=== PATIENT | female | born 1980 | race Caucasian/White ===

== ENCOUNTER 2020-09-30 09:58 | Outpatient (REF) | payer OTHER, SELFPAY | END 2020-09-30 09:59 | disposition home or self-care (01) | LOC: HO.LAB 09:58 | PROVIDERS: PCP Internal Medicine; Visit Provider Internal Medicine | DX: Z20.828 Contact with and (suspected) exposure to other viral communicable diseases (principal) | CPT/HCPCS: 36415; C9803; U0003 ==

== ENCOUNTER → 2020-10-29 16:07 | Outpatient (BNVA) | payer OTHER, SELFPAY | PROVIDERS: PCP Internal Medicine; Visit Provider Advanced Practice Midwife ==

== ENCOUNTER 2020-12-23 08:45 | Outpatient (REF) | payer OTHER, SELFPAY ==
[2020-12-23 11:54] LABS: SARS COV2 PCR INHOUSE NEGATIVE (Negative)
== END 2020-12-23 08:46 | disposition home or self-care (01) ==
LOC: HO.LAB 08:45
PROVIDERS: Visit Provider Internal Medicine
DX: Z20.822 Contact with and (suspected) exposure to COVID-19 (principal)
CPT/HCPCS: C9803; U0003

== ENCOUNTER → 2021-02-18 15:58 | Outpatient (BNVA) | payer OTHER, SELFPAY | PROVIDERS: PCP Internal Medicine; Visit Provider Obstetrics & Gynecology ==

== ENCOUNTER → 2021-03-04 15:28 | Outpatient (BNVA) | payer OTHER, SELFPAY | PROVIDERS: PCP Internal Medicine; Visit Provider Obstetrics & Gynecology | DX: Z30.432 Encounter for removal of intrauterine contraceptive device (principal) | CPT/HCPCS: 58301 ==

== ENCOUNTER 2021-03-12 10:21 | Outpatient (REF) | payer OTHER, SELFPAY ==
[2021-03-12 15:54] LABS: CT PCR NOT DETECTED (Not Detect.); NG PCR NOT DETECTED (Not Detect.)
[2021-03-13 08:40] LABS: BV Int Neg Control Negative (Negative); BV Int Pos Control Positive (Positive)
== END 2021-03-12 10:22 | disposition home or self-care (01) ==
LOC: HO.LAB 10:21
PROVIDERS: PCP Internal Medicine; Visit Provider Advanced Practice Midwife
DX: N89.8 Other specified noninflammatory disorders of vagina (principal); Z20.2 Contact with and (suspected) exposure to infections with a predominantly sexual mode of transmission
CPT/HCPCS: 87480; 87491; 87510; 87591; 87660; 99212

== ENCOUNTER 2021-07-03 15:16 | Emergency (ER) | payer OTHER, SELFPAY ==
--- NOTE | ~2021-07-03 | MR_ITS ---
EXAMINATION: MR LUMBAR SPINE WITHOUT AND WITH CONTRAST CLINICAL INFORMATION: Back pain. IV drug abuse. Fevers. Evaluation for epidural abscess. COMPARISON: Lumbar spine MRI from 03/12/2014. TECHNIQUE: MRI of the lumbar spine was obtained using routine sequences without and following the administration of 6 mL of Gadavist intravenous contrast. FINDINGS: Normal anatomic alignment. Normal, homogeneous marrow signal throughout. The vertebral body heights are maintained. The intervertebral discs are of normal height and signal. The conus medullaris terminates at the level of T12-L1. No epidural collection. The distal spinal cord is normal in appearance. No abnormal contrast enhancement. No significant abnormalities of the paraspinal musculature. Retroflexed uterus. Limited evaluation of the intra-abdominal structures without significant abnormalities. The abdominal aorta is of normal contour and caliber. AXIAL SPINAL LEVELS: Shallow disc bulging at L4-L5. Otherwise, normal annular contours. There is mild facet joint arthropathy at L4-L5 and L5-S1. No significant facet joint effusions. There is no neural foraminal or spinal canal stenosis. MR/MR lumbar spine wo/w con IMPRESSION: Minimal multilevel degenerative spondyloarthropathy of the lumbar spine as described in detail above. Otherwise, normal MRI of the lumbar spine. No suspicious edema, enhancement, or collection.
[2021-07-03 15:20] VITALS: BP 118/73; PULSE 68; RESP 16; TEMP 36.6; O2SAT 99; BMI 22.3
--- NOTE | 2021-07-03 15:47 | ED_ITS ---
HPI - Back Pain/Injury General Chief Complaint: Back Pain/Injury Stated Complaint: lower back pain Time Seen by Provider: 07/03/21 15:47 Source: patient Mode of arrival: ambulatory Limitations: no limitations History of Present Illness HPI Narrative: 40-year-old female presents to the ED with lower back pain and malaise X2 weeks that has been progressively worsening. She states this pain started all of a sudden one day and has been worsening. She does not recall what she was doing when it started but she states she never does heavy lifting. She states movement makes it worse and rest makes it better. She vaguely states over the past two weeks she has had intermittent chills but she is unsure if she has had a fever, however she has felt warm. She states the pain is intollerable despite ibuprofen, naproxen and a lidocaine patch. 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 She denies CP, SOB, nausea, vomiting, diarrhea, changes in bowel habits, weakness, peresthesias,abdominal pain. She has never had back pain before. MD elicited complaint: back pain Pertinent past history: prior back pain Onset (ago): week(s) (2) Timing: constant Severity: severe Pain scale (0-10): 10 Similar Symptoms Previously: No Quality: sharp Location: lumbar spine Radiation: none Exacerbating factors: movement Relieving factors: immobilization Treatments prior to arrival: heat therapy, NSAIDS, acetaminophen and other ( lidocaine patch ) Work related injury: No Related Data Home Medications Medication Instructions Recorded Confirmed levonorgestrel 20 mcg/24 hours (7 INTRAUTERINE 03/04/21 yrs) 52 mg intrauterine device (Mirena) Previous Rx's Medication Instructions Recorded metronidazole 500 mg tablet 500 mg PO BID 7 Days #14 tab 03/13/21 (Flagyl) Allergies Allergy/AdvReac Type Severity Reaction Status Date / Time nafcillin Allergy Unknown Verified 06/27/14 00:00 ENVIRONMENTAL Allergy Unknown ITCHY/RUNNY Uncoded 06/12/20 17:31 NOSE/WATERY EYES Review of Systems Review of Systems: Yes all other systems are reviewed and are negative Constitutional: Constitutional: Reports no additional constitutional com plaints, Denies body ache(s), Reports chills, Denies fever(s), Denies headache(s), Reports malaise and Denies weakness Eyes: Eyes: Reports no additional eye complaints and Denies change in vision ENT: Reports system reviewed and no additional complaints, except as documented, Denies dizziness, Denies headache(s), Denies nasal congestion, Denies nasal discharge and Denies neck pain Cardiovascular: Cardiovascular: Reports no additional cardiovascular complaint s, Denies chest pain, Denies leg edema and Denies dyspnea Respiratory: Respiratory: Reports no additional respiratory complaints, Denies cough and Denies dyspnea Gastrointestinal: Gastrointestinal: Reports no additional gastrointestinal complaints, Denies abdominal pain, Denies diarrhea, Denies nausea and Denies vomiting Genitourinary: Genitourinary: Reports no additional female genitourinary complaints and Denies urinary incontinence Musculoskeletal: Musculoskeletal: Reports no additional musculoskeletal complaints, Reports back pain, Denies arthralgias, Denies joint swelling, Denies neck pain, Denies numbness and Denies tingling Integumentary/Breasts: Skin/Breast: Reports system reviewed and no additional complaints, except as docu and Denies rash Neurologic: Reports system reviewed and no additional complaints, except as documented, Denies Abnormal speech present, Denies dizziness, Denies headache(s), Denies numbness, Denies tingling and Denies weakness [facility] Past Medical History Attestation statement: The following information was validated with the patient. Source: old records reviewed and nursing notes reviewed Surgical History H/O cosmetic surgery Social History Social History Unable to assess alcohol history related to: Unable to respond Patient Tobacco Use Status: Never used Tobacco Advance Directives: No Advance Directives Information Provided: Yes Patient : No Physical Exam Vital Signs: Vital Signs: Last Vital Signs Temp 98 F 07/03/21 15:20 Pulse 68 07/03/21 15:20 Resp 16 07/03/21 15:20 BP 118/73 07/03/21 15:20 Pulse Ox 99 07/03/21 15:20 Body Mass Index 22.3 Const: General: cooperative, healthy appearing, comfortable and no acute distress Orientation/consciousness: patient oriented x3 Limitations: no l imitations HENMT: Head: Yes normal to inspection Ears: hearing grossly normal bilaterally General nose exam: Normal external nose present Face and sinus: Yes normal facial exam Mouth: Normal oral and palatal mucosa present Throat: Yes posterior oropharynx normal Eyes: General: appearance normal, both eyes and all related structures Pupils: Equal, round and reactive pupils present Neck: Neck: Yes normal visual inspection Chest: Chest palpation & inspection: normal inspection of the chest Resp: Effort & Inspection: normal respiratory effort Auscultation: clear to auscultation bilaterally Cardio: Rate: regular rate Rhythm: regular rhythm Peripheral pulses: Peripheral pulses 2+ throughout GI: Inspection: Yes normal to inspection Palpation (GI): Soft to palpation and nontender Auscultation: normal bowel sounds Back/Spine/Pelvis: Other: + pain to palpation to paraspinous muscles in lumbar/sacral region. + full but very painful range of motion. Thoracic/Lumbar Spine: thoracic and lumbar spine normal to inspection Skin: General skin exam: no rashes or lesions noted Neuro: General: patient oriented x3, no focal motor deficits and normal sensation to monofilament Cranial nerves: Yes Equal, round and reactive pupils present Cognition (Neuro): normal cognition Speech: No Abnormal speech present Gait exam (Neuro): Normal gait present Motor exam (neuro): 5/5 motor strength present throughout Extrem: General: Yes normal to inspection and Yes no pedal edema Course Course Course Narrative: 1545- This is a 40 yo female former IVDA presenting with intermittent chills, malaise and lower back pain X2 weeks. She states that the pain has progressively worsened over the past 2 weeks. Despite her taking ibuprofen, naproxen, and using lidocaine patches. She states that the pain is 10/10, it does not radiate. She denies chest pain, shortness of breath, weakness, paresthesias, tingling, numbness, urinary/bowel incontinence. Upon physical examination she has exquisite tenderness to the paraspinous muscles overlying the lumbar, and sacral region vague pain over midline region. She is afebrile, however upon auscultation her heart rate is noted to be elevated, in the 100s, with a normal rhythm. Likely secondary to pain She has 5/5 strength upper and lower extremities. Sensation is intact to upper and lower extremities. She is neurologically intact. Negative CVA tenderness Reevaluation(s) Reevaluation #1: UA negative. Leukopenia noted appears to be her baseline, likely not from infection. CRP normal. Discussed this case with Dr. Andrew who recommends this patient gets an MRI for further evaluation and to r/o epidural abscess. MRI ordered. Time: 17:25 Reevaluation #2: Sign out to Tawanna BENTON pending MRI Time: 18:50 MDM - Back Pain/Injury MDM Narrative Medical decision making narrative: Based of patients history a full work up will be done to r/o infection. Blood cultures a lactic, CBC, BMP, liver, UA, ESR,CRP, fluids and an IV have been ordered. She has also been given 30 mg of toradol IM for the pain. Due to patients history of IVDA infection will be ruled out and if there is an infection will order MRI. Not consistent with cauda equina. She has full range of motion and normal sensation, no urinary complaints or incontinence Unlikely a kidney stone due to the quality of the pain, and the patient does not have urinary symptoms Likely muscle spasms, however all other diagnosis will be excluded. Medical Records Attestation: I reviewed the patient's medical records. Lab Data Attestation: I reviewed the patient's lab results. Result diagrams: 07/03/21 16:35 07/03/21 16:35 Labs: Lab Results 07/03/21 07/03/21 07/03/21 Range/Units 16:33 16:34 16:35 WBC 4.2 L (4.8-10.8) X10*3/uL RBC 3.89 L (4.20-5.50) X10*6/uL Hgb 12.7 (12.0-16.0) g/dl Hct 34.8 L (37-47) % MCV 89.5 (80-98) fL MCH 32.6 (27.0-33.0) pg MCHC 36.5 H (31.0-35.0) g/dl RDW 11.3 (11.0-16.0) % Plt Count 266 (160-400) X10*3/uL MPV 9.1 L (9.4-12.3) fL Immature Gran % (Auto) 0.0 (0.0-0.4) % Neut % (Auto) 44.3 L (45-73) % Lymph % (Auto) 43.5 H (20-40) % Titus % (Auto) 11.3 H (2-11) % Eos % (Auto) 0.2 (0-4) % Baso % (Auto) 0.7 (0-2) % Lymph # (Auto) 1.8 (1.2-4.9) X10*3/uL Titus # (Auto) 0.5 (0.1-1.2) X10*3/uL Eos # (Auto) 0.0 (0.0-0.4) X10*3/uL Baso # (Auto) 0.0 (0.0-0.2) X10*3/uL Abs Immat Gran (auto) 0.00 (0.00-0.03) X10*3/uL Absolute Neuts (auto) 1.8 L (2.0-8.3) X10*3/uL Absolute Nucleated RBC 0.000 (0.0-0.012) X10*3/uL Nucleated RBC % (auto) 0.0 (0.0-0.2) /100WBC ESR (0-20) MM/HR Sodium (135-145) mmol/L Potassium (3.3-5.1) mmol/L Chloride (96-108) mmol/L Carbon Dioxide (22-29) mmol/L Anion Gap (12-20) BUN (9-16) mg/dL Creatinine (0.5-1.4) mg/dL Estim Creat Clear Calc Estimated GFR Random Glucose (60-115) mg/dL Lactic Acid 1.0 (0.5-2.0) mmol/L Calcium (8.4-10.2) mg/dL Total Bilirubin (0.0-1.0) mg/dL Direct Bilirubin (0.0-0.5) mg/dL AST (5-31) U/L ALT (0-31) U/L Alkaline Phosphatase (39-117) U/L C-Reactive Protein (< or = 0.50) mg/dL Total Protein (6.5-8.0) g/dL Albumin (3.5-5.0) g/dL Urine Color YELLOW Urine Appearance HAZY Urine pH 7.0 (5.0-8.0) Ur Specific Valentine <= 1.005 (1.005-1.025) Urine Protein NEG (NEG-TRACE) MG/DL Urine Glucose (UA) NEG (NEG) MG/DL Urine Ketones NEG (NEG) MG/DL Urine Blood NEG (NEG) Urine Nitrite NEG (NEG) Ur Leukocyte Esterase NEG (NEG) Urine Test (NEGATIVE) 07/03/21 07/03/21 07/03/21 Range/Units 16:35 16:35 16:41 WBC (4.8-10.8) X10*3/uL RBC (4.20-5.50) X10*6/uL Hgb (12.0-16.0) g/dl Hct (37-47) % MCV (80-98) fL MCH (27.0-33.0) pg MCHC (31.0-35.0) g/dl RDW (11.0-16.0) % Plt Count (160-400) X10*3/uL MPV (9.4-12.3) fL Immature Gran % (Auto) (0.0-0.4) % Neut % (Auto) (45-73) % Lymph % (Auto) (20-40) % Titus % (Auto) (2-11) % Eos % (Auto) (0-4) % Baso % (Auto) (0-2) % Lymph # (Auto) (1.2-4.9) X10*3/uL Titus # (Auto) (0.1-1.2) X10*3/uL Eos # (Auto) (0.0-0.4) X10*3/uL Baso # (Auto) (0.0-0.2) X10*3/uL Abs Immat Gran (auto) (0.00-0.03) X10*3/uL Absolute Neuts (auto) (2.0-8.3) X10*3/uL Absolute Nucleated RBC (0.0-0.012) X10*3/uL Nucleated RBC % (auto) (0.0-0.2) /100WBC ESR 14 (0-20) MM/HR Sodium 139 (135-145) mmol/L Potassium 4.3 (3.3-5.1) mmol/L Chloride 107 (96-108) mmol/L Carbon Dioxide 24 (22-29) mmol/L Anion Gap 12 (12-20) BUN 15 (9-16) mg/dL Creatinine 0.63 (0.5-1.4) mg/dL Estim Creat Clear Calc 108.9 Estimated GFR > 60 Random Glucose 84 (60-115) mg/dL Lactic Acid (0.5-2.0) mmol/L Calcium 9.5 (8.4-10.2) mg/dL Total Bilirubin 0.2 (0.0-1.0) mg/dL Direct Bilirubin < 0.2 (0.0-0.5) mg/dL AST 16 (5-31) U/L ALT 12 (0-31) U/L Alkaline Phosphatase 49 (39-117) U/L C-Reactive Protein 0.14 (< or = 0.50) mg/dL Total Protein 8.0 (6.5-8.0) g/dL Albumin 4.4 (3.5-5.0) g/dL Urine Color Urine Appearance Urine pH (5.0-8.0) Ur Specific Valentine (1.005-1.025) Urine Protein (NEG-TRACE) MG/DL Urine Glucose (UA) (NEG) MG/DL Urine Ketones (NEG) MG/DL Urine Blood (NEG) Urine Nitrite (NEG) Ur Leukocyte Esterase (NEG) Urine Test NEGATIVE (NEGATIVE) ECG Data Attestation: I personally reviewed and interpreted this ECG as follows: ECG interpretation date: 07/03/21 ECG interpretation time: 16:09 Prior ECG tracings: available for review Interpretation: Ventricular rate 53, OR interval normal, QRS normal, QT/QTC normal. No ROSA or T wave inversions. EKG shows sinus bradycardia no acute ischemia. No significant changes when compared to EKG on 02/15/2019 Discharge Plan Discharge Clinical Impression: Back pain Qualifiers: Back pain location: low back pain Chronicity: acute Back pain laterality: left Sciatica presence: without sciatica Qualified Code(s): M54.50 - Low back pain, unspecified Patient Disposition: Home, Self-Care Instructions: Acute Low Back Pain (ED), Back Pain (ED) Additional Instructions: Take medications as prescribed Follow up with your PCP in one week Return to the emergency department with new or worsening symptoms (fevers, hills, weakness, loss of sensation to lower extremities, changes in bowel habits) Prescriptions: No Action metronidazole [Flagyl] 500 mg tablet 500 mg PO BID 7 Days Qty: 14 RF: 0 Mirena 20 mcg/24 hours (6 yrs) 52 mg intrauterine device intrauterine RF: 0 Referrals: Renetta Deleon MD [Primary Care Provider] - 2 days
--- NOTE | 2021-07-03 15:56 | ECG_ITS ---
Test Reason : BACK PAIN Blood Pressure : / mmHG Vent. Rate : 053 BPM Atrial Rate : 053 BPM P-R Int : 150 ms QRS Dur : 092 ms QT Int : 424 ms P-R-T Axes : 045 039 041 degrees QTc Int : 397 ms Sinus bradycardia Otherwise normal ECG When compared with ECG of 15-FEB-2019 10:44, No significant change was found Referred By: Cecilia Owens Electronically Signed By:BEATRIS POLK MD
[2021-07-03] MEDS: Ketorolac Tromethamine 15 MG/ML VIAL 30 MG IVPUSH (16:37)
[2021-07-03] MEDS: 0.9 % Sodium Chloride 1,000 ML 999 ML IV (16:38)
[2021-07-03 16:44] LABS: MANUAL DIFF FLAG NO
[2021-07-03 16:45] LABS: Basophils Percent Auto 0.7 % (0-2); Eosinophils Percent Auto 0.2 % (0-4); Hematocrit 34.8 % (37-47); Hemoglobin 12.7 g/dl (12.0-16.0); Lymphocytes Absolute Auto 1.8 X10*3/uL (1.2-4.9); Lymphocytes Percent Auto 43.5 % (20-40); Mean Corpuscular HGB Conc 36.5 g/dl (31.0-35.0); Mean Corpuscular Hemoglobin 32.6 pg (27.0-33.0); Mean Corpuscular Volume 89.5 fL (80-98); Mean Platelet Volume 9.1 fL (9.4-12.3); Monocytes Absolute Auto 0.5 X10*3/uL (0.1-1.2); Monocytes Percent Auto 11.3 % (2-11); Neutrophils Absolute Auto 1.8 X10*3/uL (2.0-8.3); Neutrophils Percent Auto 44.3 % (45-73); Platelet Count 266 X10*3/uL (160-400); Red Blood Count 3.89 X10*6/uL (4.20-5.50); Red Cell Distribution Width 11.3 % (11.0-16.0); White Blood Count 4.2 X10*3/uL (4.8-10.8)
[2021-07-03 16:46] LABS: Appearance Urine HAZY; Color Urine YELLOW; Glucose Urine UA NEG (NEG); Leukocyte Esterase Urine NEG (NEG); Nitrite Urine NEG (NEG); Specific Gravity - Urine <= 1.005 (1.005-1.025); Urine Blood NEG (NEG); Urine Ketones NEG (NEG); Urine Protein NEG (NEG-TRACE)
[2021-07-03 17:04] LABS: Alanine Aminotransferase 12 U/L (0-31); Albumin Level 4.4 g/dL (3.5-5.0); Alkaline Phosphatase 49 U/L (39-117); Anion Gap 12 (12-20); Aspartate Amino Transferase 16 U/L (5-31); Bilirubin Direct < 0.2 mg/dL (0.0-0.5); Bilirubin Total 0.2 mg/dL (0.0-1.0); Blood Urea Nitrogen 15 mg/dL (9-16); C Reactive Protein 0.14 mg/dL (< or = 0.50); Calcium 9.5 mg/dL (8.4-10.2); Carbon Dioxide 24 mmol/L (22-29); Chloride 107 mmol/L (96-108); Creatinine Clr Calc Pharmacy 108.9; Estimated Glomerular Filt Rate > 60; Glucose Random 84 mg/dL (60-115); Potassium 4.3 mmol/L (3.3-5.1); Sodium 139 mmol/L (135-145)
[2021-07-03 17:48] LABS: Erythrocyte Sedimentation Rate 14 MM/HR (0-20)
[2021-07-03] MEDS: dexAMETHasone sod phosphate 10 MG/ML VIAL IVPUSH (17:57)
[2021-07-03] MEDS: diazePAM 5 MG TABLET PO (17:57)
[2021-07-03] MEDS: Acetaminophen 325 MG TABLET 975 MG PO (17:57)
[2021-07-03 18:12] LABS: UPreg QC Valid YES; Urine Pregnancy NEGATIVE (NEGATIVE)
[2021-07-03 22:11] VITALS: BP 115/64; PULSE 64; RESP 18; TEMP 36.4; O2SAT 98
== END 2021-07-04 00:12 | disposition home or self-care (01) ==
PROVIDERS: Nurse Practitioner Family; Emergency Provider Emergency Medicine Emergency Medical Services; PCP Internal Medicine
DX: M54.50 Low back pain, unspecified (principal)
CPT/HCPCS: 36415; 72158; 80048; 80076; 81003; 81025; 83605; 85025; 85652; 86140; 87040; 93005; 96361; 96374; 96375; 99284; 99285; A9585; J1100; J1885

== ENCOUNTER 2021-07-23 08:55 | Outpatient (REF) | payer OTHER, SELFPAY ==
[2021-07-23 09:12] LABS: MANUAL DIFF FLAG NO
[2021-07-23 09:46] LABS: Basophils Percent Auto 1.2 % (0-2); Eosinophils Percent Auto 0.9 % (0-4); Hematocrit 37.1 % (37-47); Hemoglobin 13.5 g/dl (12.0-16.0); Lymphocytes Absolute Auto 1.4 X10*3/uL (1.2-4.9); Lymphocytes Percent Auto 42.5 % (20-40); Mean Corpuscular HGB Conc 36.4 g/dl (31.0-35.0); Mean Corpuscular Hemoglobin 32.4 pg (27.0-33.0); Mean Platelet Volume 9.3 fL (9.4-12.3); Monocytes Absolute Auto 0.4 X10*3/uL (0.1-1.2); Neutrophils Absolute Auto 1.5 X10*3/uL (2.0-8.3); Neutrophils Percent Auto 44.4 % (45-73); Platelet Count 286 X10*3/uL (160-400); Red Blood Count 4.17 X10*6/uL (4.20-5.50); Red Cell Distribution Width 11.2 % (11.0-16.0); White Blood Count 3.3 X10*3/uL (4.8-10.8)
[2021-07-23 10:09] LABS: Alanine Aminotransferase 12 U/L (0-31); Albumin Level 4.5 g/dL (3.5-5.0); Alkaline Phosphatase 45 U/L (39-117); Anion Gap 10 (12-20); Aspartate Amino Transferase 15 U/L (5-31); Bilirubin Total 0.3 mg/dL (0.0-1.0); Blood Urea Nitrogen 15 mg/dL (9-16); Calcium 9.3 mg/dL (8.4-10.2); Carbon Dioxide 26 mmol/L (22-29); Chloride 107 mmol/L (96-108); Cholesterol 172 mg/dL; Estimated Glomerular Filt Rate > 60; Glucose Fasting 96 mg/dL (60-99); HDL Cholesterol 41 mg/dL; LDL Cholesterol Calculated 117 mg/dl; Potassium 4.3 mmol/L (3.3-5.1); Sodium 139 mmol/L (135-145); Total Protein 8.1 g/dL (6.5-8.0); Triglycerides 72 mg/dL
[2021-07-23 10:33] LABS: Thyroid Stimulating Hormone 0.54 uIU/mL (0.32-4.0)
[2021-07-28 15:42] LABS: Vitamin D 25-OH, D2 <4 ng/mL; Vitamin D 25-OH, D3 13 ng/mL; Vitamin D 25-OH, Total 13 ng/mL (30-100)
== END 2021-07-23 08:56 | disposition home or self-care (01) ==
LOC: HO.LAB 08:55
PROVIDERS: PCP Internal Medicine; Visit Provider Internal Medicine
DX: D64.9 Anemia, unspecified (principal); R63.4 Abnormal weight loss; E55.9 Vitamin D deficiency, unspecified; E78.5 Hyperlipidemia, unspecified
CPT/HCPCS: 36415; 80053; 80061; 82306; 84443; 85025

== ENCOUNTER → 2021-08-18 09:50 | Outpatient (BNVA) | payer OTHER, SELFPAY | PROVIDERS: PCP Internal Medicine; Visit Provider Nurse Practitioner Family | DX: M51.36 Other intervertebral disc degeneration, lumbar region (principal); M53.3 Sacrococcygeal disorders, not elsewhere classified | CPT/HCPCS: 99202 ==

== ENCOUNTER 2021-11-12 08:54 | Outpatient (REF) | payer OTHER, SELFPAY ==
[2021-11-13 12:24] LABS: BV Int Neg Control Negative (Negative); BV Int Pos Control Positive (Positive)
[2021-11-13 13:06] LABS: CT PCR NOT DETECTED (Not Detect.); NG PCR NOT DETECTED (Not Detect.)
[2021-11-19 20:27] LABS: HPV 16 RNA NOT DETECTED (NOT DETECTED); HPV mRNA E6/E7 rflx Detected (Not Detected)
== END 2021-11-12 08:55 | disposition home or self-care (01) ==
LOC: HO.LAB 08:54
PROVIDERS: Visit Provider Advanced Practice Midwife
DX: Z01.419 Encounter for gynecological examination (general) (routine) without abnormal findings (principal); Z11.51 Encounter for screening for human papillomavirus (HPV); Z20.2 Contact with and (suspected) exposure to infections with a predominantly sexual mode of transmission
CPT/HCPCS: 87480; 87491; 87510; 87591; 87624; 87625; 87660; 88142

== ENCOUNTER 2021-11-27 07:26 | Emergency (ER) | payer OTHER, SELFPAY ==
--- NOTE | ~2021-11-27 | XR_ITS ---
EXAMINATION: XR CHEST CLINICAL INFORMATION: Cough and shortness of breath COMPARISON: Previous chest x-ray August 2018 TECHNIQUE: 2 views of the chest were obtained. FINDINGS: The cardiac and mediastinal contours are stable. There is left lower lobe subsegmental atelectasis. The lungs are otherwise clear. There is no pleural effusion or pneumothorax. Bony structures are unremarkable. XR/XR chest 2V IMPRESSION: Left lower lobe subsegmental atelectasis.
[2021-11-27 07:32] VITALS: BP 135/84; PULSE 109; RESP 20; TEMP 35.8; O2SAT 99; BMI 21.8
--- NOTE | 2021-11-27 07:39 | ED.GENADULT ---
HPI - General Adult General Chief complaint: Headache Stated complaint: Headache/SOB Time Seen by Provider: 11/27/21 07:35 Source: patient Mode of arrival: ambulatory History of Present Illness HPI narrative: 41-year-old female with PMHx of HLD, leukopenia, lumbar disc disease, urine abuse, recently treated for asthma exacerbation by PCP on 11/04/2021 with albuterol and short course of prednisone, presenting to the ED complaining dry cough, SOB, chest congestion, nasal congestion, headache, chills and fatigue since yesterday. Reports symptoms initially improved after treatment by PCP however returned. Denies known prior diagnosis of asthma before telehealth visit on 11/04 where she was tx for asthma. Denies fever, chills, pedal edema, calf pain, recent travel, sick contacts Onset (ago): day(s) Related Data Previous Rx's Medication Instructions Recorded ibuprofen 800 mg tablet 800 mg PO Q8H PRN 30 Days #90 tab 07/22/21 ergocalciferol (vitamin D2) 1,250 1,250 mcg PO QWEEK 90 Days #13 cap 07/29/21 mcg (50,000 unit) capsule albuterol sulfate 90 mcg/actuation 2 puff INHALATION Q4-6H PRN 30 11/04/21 aerosol inhaler (ProAir HFA) Days #8.5 g prednisone 20 mg tablet 40 mg PO DAILY 5 Days #10 tab 11/04/21 albuterol sulfate 90 mcg/actuation 2 puff INHALATION Q4-6H PRN #6.7 g 11/27/21 aerosol inhaler benzonatate 200 mg capsule 200 mg PO TID PRN #20 cap 11/27/21 fluticasone propionate 50 2 spray INTRANASAL DAILY #16 g 11/27/21 mcg/actuation nasal spray,suspension (Flonase Allergy Relief) Allergies Allergy/AdvReac Type Severity Reaction Status Date / Time nafcillin Allergy Mild rash Verified 11/04/21 11:54 ENVIRONMENTAL Allergy Unknown ITCHY/RUNNY Uncoded 11/04/21 11:54 NOSE/WATERY EYES Review of Systems Review of Systems: Constitutional: No Fever, + Chills, No Night Sweats, + Fatigue, No Malaise ENT/Mouth: No Ear Pain, + Nasal Congestion, No Hoarseness, No sore throat, No Rhinorrhea Eyes: No Eye Pain, No Swelling, No Redness, No Discharge Cardiovascular: No Chest Pain, + SOB, No Dyspnea on Exertion, No Orthopnea, No Edema, No Palpitations Respiratory: + Cough, No Sputum, + Wheezing,+ Dyspnea Gastrointestinal: No Nausea, No Vomiting, No Diarrhea, No Constipation, No Abdominal pain Genitourinary: No Dysuria, No Urinary Frequency, No Hematuria, No Flank Pain Musculoskeletal: No joint pain, No Myalgias, No Joint Swelling Skin: No Skin Lesions, No rash Neuro: No Weakness, No Numbness, No Dizziness, No Headache Yes all other systems are reviewed and are negative [facility] Past Medical History Attestation statement: The following information was validated with the patient. Medical History Dyslipidemia History of heroin use Leukopenia Lumbar degenerative disc disease Weight loss Surgical History H/O cosmetic surgery Family History Family History Mother No problems noted. Father Diabetes mellitus Essential hypertension Social History Social History Housing: Apartment Unable to assess alcohol history related to: Unable to respond Alcohol intake: never Patient Tobacco Use Status: Former Tobacco user Tobacco use type: Cigarette e-Cigarette/Vaping Use: Never Used Second Hand Smoke Exposure: No Use of substances other than those prescribed or required for medical reasons: No Advance Directives: No Advance Directives Information Provided: No service: No Current occupational status: employed Current occupational exposures/hazards: No Cognitive needs: No Hearing needs: No Vision needs: No Physical Exam ED Vital Signs: Vital Signs - 24 hr 11/27/21 07:32 11/27/21 08:00 11/27/21 08:20 Temperature 96.4 F L Pulse Rate 109 H 80 86 Respiratory Rate 20 18 16 Blood Pressure 135/84 125/82 Pulse Oximetry 99 98 BMI result Body Mass Index 21.8 Const General: cooperative, healthy appearing and no acute distress Orientation/consciousness: patient oriented x3 Limitations: no limitations HENMT Head: Yes normal to inspection Ears: hearing grossly normal bilaterally General nose exam: Normal external nose present Face and sinus: Yes normal facial exam Throat: Yes posterior oropharynx normal, Yes tonsils normal, Yes uvula midline, No peritonsillar mass and No uvular edema Eyes General: appearance normal, both eyes and all related structures EOM: EOMs intact bilaterally Neck Neck: Yes normal visual inspection and Yes no meningeal signs Resp Effort & Inspection: normal respiratory effort, not labored and no stridor Auscultation: wheezes (Mild end-expiratory wheeze) expiratory wheezes Cardio Rate: regular rate and tachycardic Heart sounds: S1 normal heart sound present and S2 normal heart sound present GI Inspection: Yes normal to inspection Palpation (GI): Soft to palpation, nontender, no guarding and not rigid General: Yes no CVA tenderness Back/Spine/Pelvis Back: no CVA tenderness Skin Rashes: no rashes Wounds: no wounds Neuro General: patient oriented x3 and no meningeal signs Gait exam (Neuro): Normal gait present Extrem General: Yes normal to inspection, Yes no pedal edema and Yes no calf tenderness Course Course Course Narrative: --chronic leukopenia. H&H stable. Troponin negative. Labs otherwise unremarkable. COVID-19 negative XR chest 2V IMPRESSION: Left lower lobe subsegmental atelectasis. >> results discussed with patient with audiometric technician, patient reports symptomatic improvement in the ED. No longer wheezing. Lungs CTA. Discussed worrisome signs and symptoms and strict return precautions and need a close follow-up with PCP. Patient verbalized understanding feel safe for discharge home Medical Decision Making MDM Narrative Medical decision making narrative: 41-year-old female with PMHx of HLD, leukopenia, lumbar disc disease, urine abuse, recently treated for asthma exacerbation by PCP on 11/04/2021 with albuterol and short course of prednisone, presenting to the ED complaining dry cough, SOB, chest congestion, nasal congestion, headache, chills and fatigue since yesterday. On exam tachycardic likely from albuterol, NAD/nontoxic, mild end expiratory wheeze. No pedal edema/calf tenderness. Concern for bronchitis vs viral syndrome/COVID-19 vs PNA. ?Undiagnosed asthma. Unlikely ACS/PE. Low concern for SAH/meningitis/encephalitis Plan: EKG, labs, CXR, DuoNeb, re-evaluate Medical Records Medical records reviewed: Yes I reviewed the patient's medical records. Lab Data Lab results reviewed: Yes I reviewed the patient's lab results. Result diagrams: 11/27/21 08:18 11/27/21 08:18 Labs: Lab Results 11/27/21 11/27/21 11/27/21 Range/Units 07:35 08:18 08:18 WBC 4.1 L (4.8-10.8) X10*3/uL RBC 3.97 L (4.20-5.50) X10*6/uL Hgb 12.8 (12.0-16.0) g/dl Hct 35.5 L (37.0-47.0) % MCV 89.4 (80.0-98.0) fL MCH 32.2 (27.0-33.0) pg MCHC 36.1 H (31.0-35.0) g/dl RDW 11.4 (11.0-16.0) % Plt Count 223 (160-400) X10*3/uL MPV 9.2 L (9.4-12.3) fL Immature Gran % (Auto) 0.2 (0.0-0.4) % Neut % (Auto) 66.2 (45-73) % Lymph % (Auto) 15.9 L (20-40) % [place] % (Auto) 14.3 H (2-11) % Eos % (Auto) 2.2 (0-4) % Baso % (Auto) 1.2 (0-2) % Lymph # (Auto) 0.7 L (1.2-4.9) X10*3/uL [place] # (Auto) 0.6 (0.1-1.2) X10*3/uL Eos # (Auto) 0.1 (0.0-0.4) X10*3/uL Baso # (Auto) 0.1 (0.0-0.2) X10*3/uL Abs Immat Gran (auto) 0.01 (0.00-0.03) X10*3/uL Absolute Neuts (auto) 2.7 (2.0-8.3) x10*3/uL Absolute Nucleated RBC 0.000 (0.0-0.012) X10*3/uL Nucleated RBC % (auto) 0.0 (0.0-0.2) /100WBC Sodium 138 (135-145) mmol/L Potassium 3.9 (3.3-5.1) mmol/L Chloride 110 H (96-108) mmol/L Carbon Dioxide 23 (22-29) mmol/L Anion Gap 9 L (12-20) BUN 14 (9-16) mg/dL Creatinine 0.64 (0.5-1.4) mg/dL Estim Creat Clear Calc 106.2 Estimated GFR > 60 Random Glucose 95 (60-115) mg/dL Calcium 9.0 (8.4-10.2) mg/dL Troponin I High Sens (<3.5-17.0) ng/L COVID-19 ([facility]) Negative (Negative) COVID-19 Clin Com See Note 11/27/21 Range/Units 08:18 WBC (4.8-10.8) X10*3/uL RBC (4.20-5.50) X10*6/uL Hgb (12.0-16.0) g/dl Hct (37.0-47.0) % MCV (80.0-98.0) fL MCH (27.0-33.0) pg MCHC (31.0-35.0) g/dl RDW (11.0-16.0) % Plt Count (160-400) X10*3/uL MPV (9.4-12.3) fL Immature Gran % (Auto) (0.0-0.4) % Neut % (Auto) (45-73) % Lymph % (Auto) (20-40) % [place] % (Auto) (2-11) % Eos % (Auto) (0-4) % Baso % (Auto) (0-2) % Lymph # (Auto) (1.2-4.9) X10*3/uL [place] # (Auto) (0.1-1.2) X10*3/uL Eos # (Auto) (0.0-0.4) X10*3/uL Baso # (Auto) (0.0-0.2) X10*3/uL Abs Immat Gran (auto) (0.00-0.03) X10*3/uL Absolute Neuts (auto) (2.0-8.3) x10*3/uL Absolute Nucleated RBC (0.0-0.012) X10*3/uL Nucleated RBC % (auto) (0.0-0.2) /100WBC Sodium (135-145) mmol/L Potassium (3.3-5.1) mmol/L Chloride (96-108) mmol/L Carbon Dioxide (22-29) mmol/L Anion Gap (12-20) BUN (9-16) mg/dL Creatinine (0.5-1.4) mg/dL Estim Creat Clear Calc Estimated GFR Random Glucose (60-115) mg/dL Calcium (8.4-10.2) mg/dL Troponin I High Sens < 3.5 (<3.5-17.0) ng/L COVID-19 (WAI) (Negative) COVID-19 Clin Com ECG Data Attestation: I personally reviewed and interpreted this ECG as follows: Interpretation: EKG normal sinus rhythm at a rate of 82. QRS 74. QTC 427. No STEMI/nonischemic Discharge Plan Discharge Clinical Impression: Bronchitis, Acute viral syndrome Patient Disposition: Home, Self-Care Instructions: Acute Bronchitis (ED), Viral Syndrome (ED) Additional Instructions: Your blood work is reassuring today in the ED. You tested negative for COVID Use albuterol inhaler as needed for shortness of breath/wheezing. Tessalon Perles for cough. Flonase is a nasal decongestion. Please follow-up with her doctor If symptoms persist or worsen, you constant worsening shortness of breath, developed fever, please return to the ED Motley an?lisis de chavo es tranquilizador hoy en el servicio de urgencias. Usted miguel ángel negativo para COVID Use el inhalador de albuterol seg?n sea necesario para la dificultad para respirar/sibilancias. Tesalon Perles para la tos. Flonase es un descongestionante nasal. Por favor, john un seguimiento con motley m?dico. Si los s?ntomas persisten o empeoran, empeora constantemente la dificultad para respirar, tiene fiebre, regrese al servicio de urgencias. Prescriptions: New benzonatate 200 mg capsule 200 mg PO TID PRN (Reason: cough) Qty: 20 0RF albuterol sulfate 90 mcg/actuation HFA aerosol inhaler 2 puff inhalation Q4-6H PRN (Reason: shortness of breath or wheezing) Qty: 6.7 0RF fluticasone propionate [Flonase Allergy Relief] 50 mcg/actuation spray,suspension 2 spray intranasal DAILY Qty: 16 0RF Rx Instructions: administer into each nostril No Action ergocalciferol (vitamin D2) 1,250 mcg (50,000 unit) capsule 1,250 mcg PO QWEEK 90 Days Qty: 13 1RF ibuprofen 800 mg tablet 800 mg PO Q8H PRN (Reason: pain) 30 Days Qty: 90 1RF albuterol sulfate [ProAir HFA] 90 mcg/actuation HFA aerosol inhaler 2 puff inhalation Q4-6H PRN (Reason: shortness of breath or wheezing) 30 Days Qty: 8.5 1RF prednisone 20 mg tablet 40 mg PO DAILY 5 Days Qty: 10 0RF Referrals: Renetta eDleon MD [Primary Care Provider] - 2 days Print Language: Sudanese
--- NOTE | 2021-11-27 07:46 | ECG_ITS ---
Test Reason : CHEST TIGHTNESS Blood Pressure : / mmHG Vent. Rate : 082 BPM Atrial Rate : 082 BPM P-R Int : 140 ms QRS Dur : 074 ms QT Int : 366 ms P-R-T Axes : 055 048 038 degrees QTc Int : 427 ms Normal sinus rhythm Normal ECG When compared to the previous EKG of No significant changes seen Referred By: Karoline Terrazas Electronically Signed By:Geronimo Stephens
[2021-11-27 07:58] LABS: COVID-19 Test Negative (Negative); IDNOW Serial# 55D5AD1C
[2021-11-27 08:00] VITALS: BP 125/82; PULSE 80; RESP 18; O2SAT 98
[2021-11-27] MEDS: Albuterol/Iprat 2.5/0.5MG 3 ML AMPUL.NEB INHALE (08:16)
[2021-11-27 08:20] VITALS: PULSE 86; RESP 16; O2SAT 100
[2021-11-27 08:21] LABS: MANUAL DIFF FLAG NO
[2021-11-27 08:24] LABS: Basophils Absolute Auto 0.1 X10*3/uL (0.0-0.2); Basophils Percent Auto 1.2 % (0-2); Eosinophils Absolute Auto 0.1 X10*3/uL (0.0-0.4); Eosinophils Percent Auto 2.2 % (0-4); Hematocrit 35.5 % (37.0-47.0); Hemoglobin 12.8 g/dl (12.0-16.0); Imm Gran Abs Auto 0.01 X10*3/uL (0.00-0.03); Imm Gran Pct Auto 0.2 % (0.0-0.4); Lymphocytes Absolute Auto 0.7 X10*3/uL (1.2-4.9); Lymphocytes Percent Auto 15.9 % (20-40); Mean Corpuscular HGB Conc 36.1 g/dl (31.0-35.0); Mean Corpuscular Hemoglobin 32.2 pg (27.0-33.0); Mean Corpuscular Volume 89.4 fL (80.0-98.0); Mean Platelet Volume 9.2 fL (9.4-12.3); Monocytes Absolute Auto 0.6 X10*3/uL (0.1-1.2); Monocytes Percent Auto 14.3 % (2-11); Neutrophils Absolute Auto 2.7 x10*3/uL (2.0-8.3); Neutrophils Percent Auto 66.2 % (45-73); Platelet Count 223 X10*3/uL (160-400); Red Blood Count 3.97 X10*6/uL (4.20-5.50); Red Cell Distribution Width 11.4 % (11.0-16.0); White Blood Count 4.1 X10*3/uL (4.8-10.8)
--- NOTE | 2021-11-27 08:30 | PC.NURSE ---
pt alert and oriented, skin appropriate for ethnicity, pt reports having a temporal headache/congestion/cough, respirations even and unlabored, some wheezing denies nausea, vs stable
[2021-11-27] MEDS: Ketorolac Tromethamine 15 MG/ML VIAL IVPUSH (08:32)
[2021-11-27] MEDS: Metoclopramide HCl 10 MG/2 ML VIAL IVPUSH (08:33)
[2021-11-27 08:47] LABS: Troponin-I High Sensitivity < 3.5 ng/L (<3.5-17.0)
[2021-11-27 08:51] LABS: Anion Gap 9 (12-20); Blood Urea Nitrogen 14 mg/dL (9-16); Carbon Dioxide 23 mmol/L (22-29); Chloride 110 mmol/L (96-108); Creatinine Clr Calc Pharmacy 106.2; Estimated Glomerular Filt Rate > 60; Glucose Random 95 mg/dL (60-115); Potassium 3.9 mmol/L (3.3-5.1); Sodium 138 mmol/L (135-145)
--- NOTE | 2021-11-27 09:35 | PC.NURSE ---
pt resting, reports feeling better, headache at 4/10
== END 2021-11-27 10:06 | disposition home or self-care (01) ==
PROVIDERS: Physician Assistant; Emergency Provider Emergency Medicine; PCP Internal Medicine
DX: B34.9 Viral infection, unspecified (principal); J40 Bronchitis, not specified as acute or chronic; R51.9 Headache, unspecified; R06.02 Shortness of breath; Z20.822 Contact with and (suspected) exposure to COVID-19; Z79.899 Other long term (current) drug therapy; Z87.891 Personal history of nicotine dependence
CPT/HCPCS: 36415; 71046; 80048; 84484; 85025; 87635; 93005; 94640; 96374; 96375; 99284; J1885; J2765

== ENCOUNTER 2022-01-13 15:15 | Emergency (ER) | payer OTHER, SELFPAY ==
--- NOTE | ~2022-01-13 | US_ITS ---
EXAMINATION: US ABDOMEN LIMITED CLINICAL INFORMATION: Right upper quadrant pain. COMPARISON: None TECHNIQUE: Real-time imaging of the right upper quadrant abdominal viscera. FINDINGS: Region the pancreas is unremarkable. No free fluid. Liver is felt to be within normal limits. No lesion. No ductal dilatation. Gallbladder shows no evidence for edema. No stone is seen. Common duct measures 5 mm. Patient is tender in the region of the gallbladder. The right kidney is 10.4 cm. No hydronephrosis or stone. US/US abdomen limited IMPRESSION: There is a positive Salazar sign but no ultrasound evidence for cholelithiasis or cholecystitis. No ductal dilatation.
[2022-01-13 15:39] VITALS: BP 122/61; PULSE 64; RESP 19; TEMP 36.7; O2SAT 98; BMI 22.6
[2022-01-13 15:48] LABS: MANUAL DIFF FLAG NO
[2022-01-13 15:54] LABS: Basophils Absolute Auto 0.1 X10*3/uL (0.0-0.2); Basophils Percent Auto 1.3 % (0-2); Eosinophils Absolute Auto 0.1 X10*3/uL (0.0-0.4); Eosinophils Percent Auto 2.2 % (0-4); Hematocrit 36.2 % (37.0-47.0); Hemoglobin 12.8 g/dl (12.0-16.0); Imm Gran Abs Auto 0.01 X10*3/uL (0.00-0.03); Imm Gran Pct Auto 0.2 % (0.0-0.4); Lymphocytes Absolute Auto 1.8 X10*3/uL (1.2-4.9); Lymphocytes Percent Auto 39.8 % (20-40); Mean Corpuscular HGB Conc 35.4 g/dl (31.0-35.0); Mean Corpuscular Hemoglobin 31.7 pg (27.0-33.0); Mean Corpuscular Volume 89.6 fL (80.0-98.0); Mean Platelet Volume 9.3 fL (9.4-12.3); Monocytes Absolute Auto 0.5 X10*3/uL (0.1-1.2); Monocytes Percent Auto 10.3 % (2-11); Neutrophils Absolute Auto 2.1 x10*3/uL (2.0-8.3); Neutrophils Percent Auto 46.2 % (45-73); Platelet Count 261 X10*3/uL (160-400); Red Blood Count 4.04 X10*6/uL (4.20-5.50); Red Cell Distribution Width 11.8 % (11.0-16.0); White Blood Count 4.5 X10*3/uL (4.8-10.8)
[2022-01-13 16:16] LABS: Alanine Aminotransferase 12 U/L (0-31); Albumin Level 4.2 g/dL (3.5-5.0); Alkaline Phosphatase 46 U/L (39-117); Anion Gap 9 (12-20); Aspartate Amino Transferase 14 U/L (5-31); Bilirubin Total 0.3 mg/dL (0.0-1.0); Blood Urea Nitrogen 16 mg/dL (9-16); Calcium 9.1 mg/dL (8.4-10.2); Carbon Dioxide 27 mmol/L (22-29); Chloride 105 mmol/L (96-108); Creatinine Clr Calc Pharmacy 97.3; Estimated Glomerular Filt Rate > 60; Glucose Random 98 mg/dL (60-115); Lipase 33 U/L (8-78); Sodium 137 mmol/L (135-145); Total Protein 7.4 g/dL (6.5-8.0)
--- NOTE | 2022-01-13 17:55 | ED_ITS ---
HPI - Abdominal Pain General Chief Complaint: Abdominal Pain Stated Complaint: side abd pain Time Seen by Provider: 01/13/22 17:40 Source: patient Mode of arrival: ambulatory Limitations: no limitations History of Present Illness HPI narrative: 41-year-old female who presents emergency department for evaluation of right upper quadrant and mid epigastric pain x1 month. Patient states that she has been getting intermittent abdominal pain for 1 month. She points to her epigastric area and right upper quadrant when asked to localize the pain. She states the pain was intermittent and would come on almost immediately after eating food. She describes the pain as ?difficult to describe ?. She states that the pain will last for hours and is 7/10 at its worst. For the past 2 days, the pain is been constant. She denied nausea or vomiting. She states she does have acid heartburn like symptoms and takes Tums and this is not relieved her pain. She denied fever but states she did have chills over the past 2 days. She denied rhinorrhea, sore throat, cough, chest pain, shortness of breath, dyspnea on exertion. She has had no nausea, vomiting or diarrhea. She denies any weight loss or weight gain. Patient does have a history of injection drug use but she states that she no longer uses heroin. She did have endocarditis 5 years prior which was treated with antibiotics. She denies any abdominal surgery. MD elicited complaint: abdominal pain Pertinent past history: none Onset (ago): month(s) (1) Pain Consistency: intermittent (X1 month) and other (Constant x2 days) Location: epigastric and RUQ Severity: severe Pain scale (0-10): 7 Quality: other (Difficult to describe) Radiation: none Migration to: no migration Exacerbating factors: eating (Pain starts immediately after you) Relieving factors: nothing Associated symptoms: chills Treatments prior to arrival: antacids (No relief) Related Data Home Medications Medication Instructions Recorded Confirmed cholecalciferol (vitamin D3) 25 25 mcg PO DAILY 11/12/21 11/12/21 mcg (1,000 unit) capsule Previous Rx's Medication Instructions Recorded vitamin with calcium 1 tab PO DAILY #100 tab 11/12/21 no.72-iron 27 mg-folic acid 1 mg tablet ( Vitamins Plus Low Iron) fluticasone propionate 50 2 spray INTRANASAL DAILY #16 g 11/27/21 mcg/actuation nasal spray,suspension (Flonase Allergy Relief) fluticasone propionate 44 1 puff INHALATION BID 30 Days 12/21/21 mcg/actuation HFA aerosol inhaler #10.6 g (Flovent HFA) ibuprofen 800 mg tablet 800 mg PO Q8H PRN 30 Days #90 tab 12/21/21 albuterol sulfate 90 mcg/actuation 2 puff INHALATION Q4-6H PRN #6.7 g 01/12/22 aerosol inhaler omeprazole 20 mg capsule,delayed 20 mg PO DAILY 30 Days #30 cap 01/13/22 release Allergies Allergy/AdvReac Type Severity Reaction Status Date / Time nafcillin Allergy Mild rash Verified 01/13/22 15:42 ENVIRONMENTAL Allergy Unknown ITCHY/RUNNY Uncoded 01/13/22 15:42 NOSE/WATERY EYES Review of Systems Review of Systems Yes all other systems are reviewed and are negative [facility] Past Medical History [facility] Narrative: Past surgical history: None. Social history: The patient denies tobacco, and alcohol use. She does use edible marijuana. Medical History Dyslipidemia Endocarditis Hepatitis C History of heroin use Leukopenia Lumbar degenerative disc disease Physical exam Weight loss Surgical History H/O cosmetic surgery Family History Family History Mother No problems noted. Father Diabetes mellitus Essential hypertension Social History Social History Housing: Apartment Unable to assess alcohol history related to: Unable to respond Alcohol intake: never Patient Tobacco Use Status: Never used Tobacco Tobacco use type: Cigarette e-Cigarette/Vaping Use: Never Used Second Hand Smoke Exposure: No Advance Directives: No Advance Directives Information Provided: No service: No Current occupational status: employed Current occupational exposures/hazards: No Gender identity: Female Cognitive needs: No Hearing needs: No Vision needs: No Physical Exam ED Vital Signs: Vital Signs - 24 hr 01/13/22 15:39 Temperature 98.1 F Pulse Rate 64 Respiratory Rate 19 Blood Pressure 122/61 Pulse Oximetry 98 BMI result Body Mass Index 22.6 Const General: cooperative and no acute distress Orientation/consciousness: oriented to person and oriented to place Limitations: no limitations HENMT Head: Yes normal to inspection, Yes normocephalic and Yes atraumatic Ears: external ears normal General nose exam: Normal external nose present Face and sinus: Yes normal facial exam Mouth: Normal oral and palatal mucosa present Throat: Yes posterior oropharynx normal Eyes General: appearance normal, both eyes and all related structures Pupils: Equal, round and reactive pupils present Neck Neck: Yes normal visual inspection, Yes no lymphadenopathy, Yes trachea midline and Yes supple Chest Chest palpation & inspection: normal inspection of the chest and normal palpation of entire chest wall Resp Effort & Inspection: normal respiratory effort and able to speak in complete sentences Auscultation: clear to auscultation bilaterally Cardio Rate: regular rate Rhythm: regular rhythm Heart sounds: S1 normal heart sound present, S2 normal heart sound present and no murmurs GI Inspection: Yes normal to inspection Palpation (GI): Soft to palpation, Tenderness to palpation present (GI) in the epigastrum (Moderate) and in the RUQ (Mild); Negative for not at McBurney's point and no guarding Auscultation: normal bowel sounds General: Yes no CVA tenderness Back/Spine/Pelvis Back: no CVA tenderness Skin General skin exam: no rashes or lesions noted Neuro General: oriented to person and oriented to place Cranial nerves: Yes CN's II-XII intact bilaterally and Yes Equal, round and reactive pupils present Cognition (Neuro): normal cognition Motor exam (neuro): 5/5 motor strength present throughout Extrem General: Yes normal to inspection Psych Appearance: grossly normal Speech and movement: Normal speech and movement present Affect: normal affect Attitude: cooperative Thought process: Normal thought process present Thought content: Normal thought content present Course Course Course Narrative: 41-year-old female who presents emergency department for evaluation of intermittent epigastric and right upper quadrant pain x1 month, constant x2 days. Patient had associated chills with no other symptoms . She has been using antacids with no relief for symptoms. Vital signs were normal. Exam did reveal moderate epigastric tenderness and mild right upper quadrant tenderness. Laboratory evaluation and right upper ultrasound will be obtained. 180: Laboratory evaluation: Low WBC 4500-chronic. CMP and lipase were normal. 184: Radiology evaluation : Limited abdominal ultrasound , radiology reading: a positive Salazar sign but no ultrasonic evidence of cholelithiasis or cholecystitis. No ductal dilatation. Given her normal laboratory evaluation an unremarkable ultrasound, I believe that the patient's symptoms are more consistent with gastritis. Patient was given a GI cocktail of Maalox 30 cc, 10 cc and viscous lidocaine 10 cc orally with improvement of her pain. Patient will be started on Prilosec (omeprazole) 20 mg once a day for 1 month. She was advised to follow-up with her PCP and return if her symptoms get worse. MDM - Abdominal Pain Lab Data Result diagrams: 01/13/22 15:44 01/13/22 15:44 Labs: Lab Results 01/13/22 01/13/22 Range/Units 15:44 15:44 WBC 4.5 L (4.8-10.8) X10*3/uL RBC 4.04 L (4.20-5.50) X10*6/uL Hgb 12.8 (12.0-16.0) g/dl Hct 36.2 L (37.0-47.0) % MCV 89.6 (80.0-98.0) fL MCH 31.7 (27.0-33.0) pg MCHC 35.4 H (31.0-35.0) g/dl RDW 11.8 (11.0-16.0) % Plt Count 261 (160-400) X10*3/uL MPV 9.3 L (9.4-12.3) fL Immature Gran % (Auto) 0.2 (0.0-0.4) % Neut % (Auto) 46.2 (45-73) % Lymph % (Auto) 39.8 (20-40) % [place] % (Auto) 10.3 (2-11) % Eos % (Auto) 2.2 (0-4) % Baso % (Auto) 1.3 (0-2) % Lymph # (Auto) 1.8 (1.2-4.9) X10*3/uL [place] # (Auto) 0.5 (0.1-1.2) X10*3/uL Eos # (Auto) 0.1 (0.0-0.4) X10*3/uL Baso # (Auto) 0.1 (0.0-0.2) X10*3/uL Abs Immat Gran (auto) 0.01 (0.00-0.03) X10*3/uL Absolute Neuts (auto) 2.1 (2.0-8.3) x10*3/uL Absolute Nucleated RBC 0.000 (0.0-0.012) X10*3/uL Nucleated RBC % (auto) 0.0 (0.0-0.2) /100WBC Sodium 137 (135-145) mmol/L Potassium 4.0 (3.3-5.1) mmol/L Chloride 105 (96-108) mmol/L Carbon Dioxide 27 (22-29) mmol/L Anion Gap 9 L (12-20) BUN 16 (9-16) mg/dL Creatinine 0.67 (0.5-1.4) mg/dL Estim Creat Clear Calc 97.3 Estimated GFR > 60 Random Glucose 98 (60-115) mg/dL Calcium 9.1 (8.4-10.2) mg/dL Total Bilirubin 0.3 (0.0-1.0) mg/dL AST 14 (5-31) U/L ALT 12 (0-31) U/L Alkaline Phosphatase 46 (39-117) U/L Total Protein 7.4 (6.5-8.0) g/dL Albumin 4.2 (3.5-5.0) g/dL Lipase 33 (8-78) U/L Discharge Plan Discharge Clinical Impression: Gastritis Qualifiers: Gastritis type: unspecified gastritis Chronicity: acute Gastritis bleeding: without bleeding Qualified Code(s): K29.00 - Acute gastritis without bleeding Patient Disposition: Home, Self-Care Instructions: Gastritis (ED) Additional Instructions: Your blood work was normal. The ultrasound of your abdomen revealed a normal-appearing gallbladder with no gallstones. At this time, I believe that your pain is due to too much acid and inflammation in your stomach (gastritis). Take Prilosec (omeprazole) 20 mg pills, 1 pill once a day for 1 month. This medication shuts off your acid production and let us the inflammation in your esophagus and stomach heal. Follow-up with your doctor in 2 days. Please return to the emergency department if your symptoms get worse or if you develop any symptoms that are concerning to you. Prescriptions: New omeprazole 20 mg capsule,delayed release(DR/EC) 20 mg PO DAILY 30 Days Qty: 30 0RF No Action albuterol sulfate 90 mcg/actuation HFA aerosol inhaler 2 puff inhalation Q4-6H PRN (Reason: shortness of breath or wheezing) Qty: 6.7 0RF fluticasone propionate [Flonase Allergy Relief] 50 mcg/actuation spray,suspension 2 spray intranasal DAILY Qty: 16 0RF Rx Instructions: administer into each nostril ibuprofen 800 mg tablet 800 mg PO Q8H PRN (Reason: pain) 30 Days Qty: 90 1RF Flovent HFA 44 mcg/actuation HFA aerosol inhaler 1 puff inhalation BID 30 Days Qty: 10.6 4RF cholecalciferol (vitamin D3) 25 mcg (1,000 unit) capsule 25 mcg PO DAILY 0RF Vitamin Plus Low Iron 27 mg iron- 1 mg tablet 1 tab PO DAILY Qty: 100 3RF
[2022-01-13 18:50] VITALS: BP 123/78; PULSE 66; RESP 18; TEMP 36.9; O2SAT 99
[2022-01-13] MEDS: PHENobarb/Hyoscy/Atropine/Scop 10 ML ELIXIR PO (19:00)
[2022-01-13] MEDS: Lidocaine HCl Viscous 2 % 15 ML SOLUTION 10 ML PO (19:00)
[2022-01-13] MEDS: Magnesium Hydrox/Alum Hydrox 30 ML ORAL.SUSP PO (19:00)
== END 2022-01-13 19:07 | disposition home or self-care (01) ==
PROVIDERS: Emergency Provider Emergency Medicine Emergency Medical Services; PCP Internal Medicine
DX: K29.00 Acute gastritis without bleeding (principal)
CPT/HCPCS: 36415; 76705; 80053; 83690; 85025; 99284

== ENCOUNTER 2022-02-01 08:46 | Outpatient (REF) | payer OTHER, SELFPAY ==
[2022-02-01 13:54] LABS: CT PCR NOT DETECTED (Not Detect.); NG PCR NOT DETECTED (Not Detect.)
[2022-02-02 11:14] LABS: BV Int Neg Control Negative (Negative); BV Int Pos Control Positive (Positive)
== END 2022-02-01 08:47 | disposition home or self-care (01) ==
LOC: HO.LAB 08:46
PROVIDERS: PCP Internal Medicine; Visit Provider Advanced Practice Midwife
DX: Z12.4 Encounter for screening for malignant neoplasm of cervix (principal); N89.8 Other specified noninflammatory disorders of vagina; Z20.2 Contact with and (suspected) exposure to infections with a predominantly sexual mode of transmission
CPT/HCPCS: 87480; 87491; 87510; 87591; 87660; 99212

== ENCOUNTER 2022-02-09 10:42 | Outpatient (REF) | payer OTHER, SELFPAY | END 2022-02-09 10:43 | disposition home or self-care (01) | LOC: HO.LAB 10:42 | PROVIDERS: Visit Provider Obstetrics & Gynecology | DX: R87.611 Atypical squamous cells cannot exclude high grade squamous intraepithelial lesion on cytologic smear of cervix (ASC-H) (principal) | CPT/HCPCS: 57454; 81025; 88305 ==

== ENCOUNTER → 2022-02-23 11:28 | Outpatient (BNVA) | payer OTHER, SELFPAY | PROVIDERS: PCP Internal Medicine; Visit Provider Obstetrics & Gynecology | DX: N87.0 Mild cervical dysplasia (principal) | CPT/HCPCS: 99212 ==

== ENCOUNTER 2022-03-05 08:53 | Day surgery (SDC) | payer OTHER, SELFPAY ==
--- NOTE | 2022-03-04 09:04 | HO.ANESPROP2 ---
Documented by User: Delores Spangler NP 03/04/22 09:06 HPI - Anesthesia Eval Consult details Narrative: 41yo F for LEEP with post cone ECC PMFSH Active Problems Active Problems: All Active Problems (Updated 02/23/22 @ 11:45 by Gordon Flynn MD) Dysplasia of cervix, low grade (JOYA 1) (Acute) Pap smear of cervix with ASCUS, cannot exclude HGSIL (Acute) Vaginal itching (Acute) Nasal abscess (Acute) Well woman exam with routine gynecological exam (Acute) Cervical cancer screening (Acute) Patient desires (Acute) Physical exam (Acute) Asthma exacerbation (Acute) Asthma (Acute) Sacroiliac joint pain (Acute) Weight loss (Acute) Leukopenia (Acute) Dyslipidemia (Acute) History of heroin use (Acute) Lumbar degenerative disc disease (Acute) Potential exposure to STD (Acute) Vaginal itching (Acute) Encounter for IUD removal (Acute) Contraceptive management (Acute) Past Medical History Medical History Dyslipidemia Endocarditis Hepatitis C History of heroin use Leukopenia Lumbar degenerative disc disease Physical exam Weight loss Family History Family History Mother No problems noted. Father Diabetes mellitus Essential hypertension Surgical History Surgical History H/O cosmetic surgery Social History Social History (Updated 03/05/22 @ 11:50 by Ignacia Sousa MD) Housing: Apartment Unable to assess alcohol history related to: Unable to respond Alcohol intake: never Tobacco use type: Cigarette e-Cigarette/Vaping Use: Never Used Second Hand Smoke Exposure: No Use of substances other than those prescribed or required for medical reasons: Yes Substance Use Type: Marijuana Substance Use Frequency: Daily Are you DNR?: No Advance Directives: No Advance Directives Information Provided: Yes service: No Current occupational status: employed Current occupational exposures/hazards: No Gender identity: Female Cognitive needs: No Hearing needs: No Vision needs: No Meds Allergies Allergy/AdvReac Type Severity Reaction Status Date / Time nafcillin Allergy Mild rash Verified 02/09/22 11:01 ENVIRONMENTAL Allergy Unknown ITCHY/RUNNY Uncoded 02/09/22 11:01 NOSE/WATERY EYES Home Medications Medication Instructions Recorded Confirmed Last Taken Type cholecalciferol (vitamin D3) 25 25 mcg PO DAILY 11/12/21 02/01/22 Unknown History mcg (1,000 unit) capsule Exam Exam Date and Time: March 04, 2022903 Pertinent Lab Results Pertinent Lab Results: Laboratory Tests 01/13/22 01/13/22 15:44 15:44 WBC 4.5 L Hgb 12.8 Hct 36.2 L Plt Count 261 Sodium 137 Potassium 4.0 Chloride 105 Carbon Dioxide 27 BUN 16 Creatinine 0.67 Narrative Narrative: EKG 11/2021 Vent. Rate : 082 BPM ? ? Atrial Rate : 082 BPM ?? P-R Int : 140 ms? QRS Dur : 074 ms ? ? QT Int : 366 ms ? ? ? P-R-T Axes : 055 048 038 degrees ?? QTc Int : 427 ms ? Normal sinus rhythm Normal ECG When compared to the previous EKG of No significant changes seen Assessment and Plan Assessment Anesthesia Assessment: Chart Reviewed Documented by User: Ignacia Sousa MD 03/05/22 11:54 PMFSH Active Problems Active Problems: All Active Problems (Updated 02/23/22 @ 11:45 by Gordon Flynn MD) Dysplasia of cervix, low grade (JOYA 1) (Acute) Pap smear of cervix with ASCUS, cannot exclude HGSIL (Acute) Vaginal itching (Acute) Nasal abscess (Acute) Well woman exam with routine gynecological exam (Acute) Cervical cancer screening (Acute) Patient desires (Acute) Physical exam (Acute) Asthma exacerbation (Acute) Asthma- inhalers prn. Last use yesterday Sacroiliac joint pain (Acute) Weight loss (Acute) Leukopenia (Acute) Dyslipidemia (Acute) History of heroin use (Acute- denies recent use Lumbar degenerative disc disease (Acute) Potential exposure to STD (Acute) Vaginal itching (Acute) Encounter for IUD removal (Acute) Contraceptive management (Acute) Hepatitis C treated Marijuana this am 03/05/22 Past Medical History Medical History Dyslipidemia Endocarditis Hepatitis C History of heroin use Leukopenia Lumbar degenerative disc disease Physical exam Weight loss Family History Family History Mother No problems noted. Father Diabetes mellitus Essential hypertension Family history of problems with anesthesia: No Surgical History Surgical History H/O cosmetic surgery History of Problems with Anesthesia: No Social History Social History (Updated 03/05/22 @ 11:50 by Ignacia Sousa MD) Housing: Apartment Unable to assess alcohol history related to: Unable to respond Alcohol intake: never Tobacco use type: Cigarette e-Cigarette/Vaping Use: Never Used Second Hand Smoke Exposure: No Use of substances other than those prescribed or required for medical reasons: Yes Substance Use Type: Marijuana Substance Use Frequency: Daily Are you DNR?: No Advance Directives: No Advance Directives Information Provided: Yes service: No Current occupational status: employed Current occupational exposures/hazards: No Gender identity: Female Cognitive needs: No Hearing needs: No Vision needs: No Meds Allergies Allergy/AdvReac Type Severity Reaction Status Date / Time nafcillin Allergy Mild rash Verified 02/09/22 11:01 ENVIRONMENTAL Allergy Unknown ITCHY/RUNNY Uncoded 02/09/22 11:01 NOSE/WATERY EYES Home Medications Medication Instructions Recorded Confirmed Last Taken Type cholecalciferol (vitamin D3) 25 25 mcg PO DAILY 11/12/21 02/01/22 Unknown History mcg (1,000 unit) capsule Exam Height,Weight and Vital Signs: Height 5 ft 5 in Weight 58.967 kg Vital Signs Temp Pulse Resp BP Pulse Ox O2 Del Method 03/05/22 09:48 97.0 F 75 18 141/79 H 97 Room Air Airway Mallampati Class: II TM Dist: >3cm Neck ROM: Full Denture: Upper Loose/Missing/Broken Teeth: No (No broken or loose bottom ) Heart: RRR Lungs: CTAB Assessment and Plan Assessment Anesthesia Assessment: Anesthesia Plan Discussed Final Anesthetic Review Family History of Problems with Anesthesia: No History of Problems with Anesthesia: No NPO: Yes ASA Class: II Final Preanesthetic Review: No Changes in Pt Med Stat, Meds/Allgs Chart Reviewed, Consent Obtained/Reviewed and Anes Risks/Benef Reviewed Patient Risk: Intermediate Procedure Risk: Low Assessment/Block/Sedation in SS: Assess/Block/Sedation-SS Anesthetic Plan Anesthetic Plan: GA Disposition: Standard PACU
[2022-03-05 09:48] VITALS: BP 141/79; PULSE 75; RESP 18; TEMP 36.1; O2SAT 97; BMI 21.6
[2022-03-05 09:56] LABS: UPreg QC Valid YES; Urine Pregnancy NEGATIVE (NEGATIVE)
[2022-03-05] MEDS: Lactated Ringers 1,000 ML 100 ML IVCONT (10:12)
[2022-03-05 10:17] LABS: Amphetamine Screen Urine Not Detected (Not Detect); Barbiturates, Urine Not Detected (Not Detect); Benzodiazepines Screen Urine Not Detected (Not Detect); Cannabinoid Screen Urine POSITIVE (Not Detect); Cocaine Screen Urine Not Detected (Not Detect); Fentanyl, urine Not Detected (Not Detect); Opiate Screen Urine Not Detected (Not Detect); Phencyclidine Screen Urine Not Detected (Not Detect)
--- NOTE | 2022-03-05 10:44 | MHC.SHP ---
Pre-Procedural Eval Section A Date of Service: 03/05/22 The patient is an INPATIENT: No Changes since office visit: No Cold of Flu in the past 2 weeks, No New Medical Problems, No Changes in Medication and No Patient answered all questions The History & Physical has been completed within 30 days and I have reviewed it.: Yes Section B Chief Complaint: cervical dysplasia Allergies: Allergies Allergy/AdvReac Type Severity Reaction Status Date / Time nafcillin Allergy Mild rash Verified 02/09/22 11:01 ENVIRONMENTAL Allergy Unknown ITCHY/RUNNY Uncoded 02/09/22 11:01 NOSE/WATERY EYES Plan Diagnosis/Plan: Unchanged I have reviewed the history and physical and performed a pertinent physical examination on my patient. No changes have occurred unless specified.
--- NOTE | 2022-03-05 12:04 | P.BOP_ITS ---
Brief Operative Note Date of Service: 03/05/22 Pre-op diagnosis: JOYA 1 preceded by ASC-H Post-op diagnosis: same Procedure: colposcopy,LEEP CONE with post CONE ECC Surgeon: Gordon Flynn MD Anesthesia: local and other (Paracervical block) Was an Computing Services Director used for this Procedure?: No Estimated blood loss (mL): 0 Pathology: other ( cervical cone with 12:00 o'clock and 04:00 o'clock stage, top hat Endocx, deeper excision posterior cervical lip at 04:00 o'clock,Post cone ECC) Condition: stable Disposition: other (Home)
--- NOTE | 2022-03-05 12:05 | P.OP_ITS ---
Operative Note Operative Note Date of Service: 03/05/22 Narrative: Pre op diagnosis: JOYA 1 preceded by ASC H Operation: Colposcopy, Loop electrical excision procedure cone, top hat endocervical excision, post cone ECC Postop diagnosis: the same Quantitative blood loss: 10 cc Surgeon: Gordon Flynn MD, FACOG Clothing Consultant: None Pathology: Cervical cone, top-hat endo cervical excision, endo cervical curettage Complications: none Anesthesia: MAC and Para cervical block Procedure: The patient was put in a dorsal lithotomy position, scrubbed and draped in the usual sterile fashion. A speculum was inserted inside the patient's vagina. The cervix is assessed using the colposcope with acetic acid , the lesions were seen, and at least 1 cm of the squamocolumnar junction was observed. 20 x 5 mm size loop was selected based upon the diameter of the lesion. Lugol solution was used to outline the lesions and area of the transformation zone order to be removed 10 cc of xylocaine with epinephrine were injected submucosally into the surface of the cervix (ectocervix) at the 3, 6, 9, and 12 o'clock positions. The electrosurgical generator is set at 30 to 40 patrick on blend 1. The loop is carefully passed simultaneously around and under the transformation zone, in order to ensure excising it making sure the lesion is at least 5 mm far from the specimen margins . The loop was allowed to glide through the cervix from one side to the other, allowing the cutting current to divide the tissue. specimen of the cone was given in 2 pieces with 1 stitch at 12:00 o'clock and other 1 at 04:00 o'clock on the other specimen. Then a deeper layer of the posterior cervix at 04:00 o'clock was excised; next, additional tissue was excised from this area with a smaller-diameter loop , endo cervical top-hat excision was performed. An endo cervical curettage is performed following completion of excision, and hemostasis is obtained with a Ball electrode or regular tip cautery. At the end, Monsel's solution was applied to the cone bed. The patient tolerated the procedure well and, all instruments were taken out of the patient vaginal cavity, and the patient was transferred to the PACU in stable condition.
[2022-03-05 12:12] VITALS: BP 128/80; PULSE 80; RESP 16; TEMP 36.6; O2SAT 100
[2022-03-05 12:17] VITALS: BP 110/83; PULSE 72; RESP 18; O2SAT 100
[2022-03-05 12:27] VITALS: BP 118/78; PULSE 66; RESP 16; O2SAT 99
[2022-03-05] MEDS: Acetaminophen 325 MG TABLET 650 MG PO (12:29)
[2022-03-05 12:42] VITALS: BP 113/77; PULSE 58; RESP 17; TEMP 36.6; O2SAT 100
== END 2022-03-05 13:05 | disposition home or self-care (01) ==
PROVIDERS: Nurse Practitioner; Visit Provider Obstetrics & Gynecology
PROC: 0UBC7ZZ Excision of Cervix, Via Natural or Artificial Opening (ICD-10-PCS; CPT 57522; principal; 2022-03-05 10:50)
DX: N87.0 Mild cervical dysplasia (principal); E78.5 Hyperlipidemia, unspecified; B19.20 Unspecified viral hepatitis C without hepatic coma; D72.819 Decreased white blood cell count, unspecified; I38 Endocarditis, valve unspecified; R63.4 Abnormal weight loss; Z68.22 Body mass index [BMI] 22.0-22.9, adult; F11.11 Opioid abuse, in remission; F12.90 Cannabis use, unspecified, uncomplicated; Z88.1 Allergy status to other antibiotic agents
CPT/HCPCS: 57461; 80307; 81025; 88305; 88307; 88341; 88342; 88360; J2250; J2405; J3010

== ENCOUNTER 2022-03-11 12:50 | Outpatient (REF) | payer OTHER, SELFPAY ==
[2022-03-11 20:14] LABS: CT PCR NOT DETECTED (Not Detect.); NG PCR NOT DETECTED (Not Detect.)
[2022-03-12 08:33] LABS: BV Int Neg Control Negative (Negative); BV Int Pos Control Positive (Positive)
== END 2022-03-11 12:51 | disposition home or self-care (01) ==
LOC: HO.LAB 12:50
PROVIDERS: Visit Provider Advanced Practice Midwife
DX: N89.8 Other specified noninflammatory disorders of vagina (principal); Z11.3 Encounter for screening for infections with a predominantly sexual mode of transmission; Z11.8 Encounter for screening for other infectious and parasitic diseases
CPT/HCPCS: 87480; 87491; 87510; 87591; 87660; 99212

== ENCOUNTER → 2022-03-22 11:45 | Outpatient (BNVA) | payer OTHER, SELFPAY | PROVIDERS: PCP Internal Medicine; Visit Provider Obstetrics & Gynecology | DX: N87.0 Mild cervical dysplasia (principal) | CPT/HCPCS: 99212 ==

== ENCOUNTER → 2022-04-01 10:33 | Outpatient (REF) | payer OTHER, SELFPAY ==
--- NOTE | 2022-04-01 10:40 | ECG_ITS ---
Test Reason : PREOP Blood Pressure : / mmHG Vent. Rate : 053 BPM Atrial Rate : 053 BPM P-R Int : 166 ms QRS Dur : 080 ms QT Int : 412 ms P-R-T Axes : 050 053 041 degrees QTc Int : 386 ms Sinus bradycardia Otherwise normal ECG When compared with ECG of 27-NOV-2021 07:49, Vent. rate has decreased BY 29 BPM Referred By: Gricelda Alvarez Electronically Signed By:Geronimo Stephens
[2022-04-01 11:11] LABS: MANUAL DIFF FLAG NO
[2022-04-01 12:02] LABS: Basophils Absolute Auto 0.1 X10*3/uL (0.0-0.2); Basophils Percent Auto 1.5 % (0-2); Eosinophils Absolute Auto 0.2 X10*3/uL (0.0-0.4); Eosinophils Percent Auto 4.4 % (0-4); Hematocrit 38.5 % (37.0-47.0); Hemoglobin 13.6 g/dl (12.0-16.0); Lymphocytes Absolute Auto 1.7 X10*3/uL (1.2-4.9); Lymphocytes Percent Auto 50.6 % (20-40); Mean Corpuscular HGB Conc 35.3 g/dl (31.0-35.0); Mean Corpuscular Hemoglobin 31.3 pg (27.0-33.0); Mean Corpuscular Volume 88.5 fL (80.0-98.0); Mean Platelet Volume 9.3 fL (9.4-12.3); Monocytes Absolute Auto 0.5 X10*3/uL (0.1-1.2); Neutrophils Percent Auto 29.5 % (45-73); Platelet Count 319 X10*3/uL (160-400); Red Blood Count 4.35 X10*6/uL (4.20-5.50); Red Cell Distribution Width 11.7 % (11.0-16.0); White Blood Count 3.4 X10*3/uL (4.8-10.8)
[2022-04-01 12:06] LABS: Prothrombin Time 11.2 SEC (10.0-13.1)
[2022-04-01 12:09] LABS: Partial Thromboplastin Time 32.3 SEC (24.1-38.0)
[2022-04-01 12:30] LABS: Alanine Aminotransferase 14 U/L (0-31); Albumin Level 4.4 g/dL (3.5-5.0); Alkaline Phosphatase 43 U/L (39-117); Anion Gap 12 (12-20); Aspartate Amino Transferase 18 U/L (5-31); Bilirubin Total 0.7 mg/dL (0.0-1.0); Blood Urea Nitrogen 15 mg/dL (9-16); Calcium 9.1 mg/dL (8.4-10.2); Carbon Dioxide 24 mmol/L (22-29); Chloride 107 mmol/L (96-108); Estimated Glomerular Filt Rate > 60; Glucose Fasting 83 mg/dL (60-99); Potassium 4.7 mmol/L (3.3-5.1); Sodium 138 mmol/L (135-145); Total Protein 7.9 g/dL (6.5-8.0)
[2022-04-01 12:38] LABS: HCG Quantitative < 2 mIU/mL
[2022-04-02 07:13] LABS: ~HepC Num1 14.19 S/CO (0.00-0.79); ~Hepatitis C Antibody Reactive (Nonreactive)
[2022-04-02 07:14] LABS: HIV AB/AG Nonreactive (Nonreactive); HIV Num 1 0.14 S/CO (0.00-0.99)
[2022-04-06 13:46] LABS: HCV Log PCR <1.18 NOT DETECTED Log IU/mL (NOT DETECTED); HepC Viral Load <15 NOT DETECTED IU/mL (NOT DETECTED)
== END ==
LOC: HO.CARD 10:33
PROVIDERS: PCP Internal Medicine; Visit Provider Nurse Practitioner Family
DX: Z01.818 Encounter for other preprocedural examination (principal); I10 Essential (primary) hypertension; R00.1 Bradycardia, unspecified; E78.00 Pure hypercholesterolemia, unspecified; Z11.4 Encounter for screening for human immunodeficiency virus [HIV]; Z11.59 Encounter for screening for other viral diseases; Z87.898 Personal history of other specified conditions
CPT/HCPCS: 36415; 80053; 84702; 85025; 85610; 85730; 86803; 87389; 87522; 93005

== ENCOUNTER 2022-04-14 08:46 | Outpatient (REF) | payer OTHER, SELFPAY ==
--- NOTE | ~2022-04-14 | XR_ITS ---
EXAMINATION: XR CHEST CLINICAL INFORMATION: Encounter for preprocedural cardiovascular examination COMPARISON: 11/27/2021 TECHNIQUE: 2 views of the chest were obtained. FINDINGS: Again seen is streaky left lower lobe opacity, which may represent atelectasis or scar. No focal consolidation or mass Normal pulmonary vascularity. No pleural effusion or pneumothorax. Normal heart size. No acute osseous abnormality. XR/XR chest 2V IMPRESSION: Persistent streaky left lower lobe opacity which may represent atelectasis or scar.
[2022-04-14 10:19] LABS: Cholesterol 183 mg/dL; HDL Cholesterol 39 mg/dL; LDL Cholesterol Calculated 127 mg/dl; Triglycerides 86 mg/dL
== END 2022-04-14 08:47 | disposition home or self-care (01) ==
LOC: HO.XRAY 08:46
PROVIDERS: PCP Internal Medicine; Visit Provider Internal Medicine
DX: Z01.810 Encounter for preprocedural cardiovascular examination (principal); Z13.220 Encounter for screening for lipoid disorders
CPT/HCPCS: 36415; 71046; 80061

== ENCOUNTER 2022-12-25 16:13 | Emergency (ER) | payer OTHER, SELFPAY ==
--- NOTE | 2022-12-25 16:16 | ED.HA ---
HPI - Headache General Chief Complaint: Headache Stated Complaint: headache Time Seen by Provider: 12/25/22 21:32 Related Data Home Medications ?Medication ?Instructions ?Recorded ?Confirmed omeprazole 20 mg capsule,delayed 20 mg PO DAILY PRN Abdominal Pain 04/12/22 07/13/22 release Previous Rx's ?Medication ?Instructions ?Recorded fluticasone propionate 50 2 spray intranasal DAILY #16 grams 11/27/21 mcg/actuation nasal spray,suspension (Flonase Allergy Relief) albuterol sulfate 90 mcg/actuation 2 puff inhalation Q4-6H PRN 01/12/22 aerosol inhaler shortness of breath or wheezing #6.7 grams dronabinol 2.5 mg capsule 2.5 mg PO BID #60 caps 07/13/22 ibuprofen 400 mg tablet 400 mg PO Q6H PRN pain #20 tabs 12/26/22 ondansetron 4 mg disintegrating 4 mg PO TID PRN nausea and 12/26/22 tablet vomiting 5 days #10 tabs fluticasone propionate 44 1 puff inhalation BID PRN 03/01/23 mcg/actuation HFA aerosol inhaler Shortness Of Breath Or Wheezing 30 (Flovent HFA) days #10.6 grams ibuprofen 800 mg tablet 800 mg PO Q8H PRN pain 30 days #90 03/01/23 tabs clindamycin HCl 300 mg capsule 300 mg PO TID 7 days #21 caps 09/21/23 erythromycin 5 mg/gram (0.5 %) eye 0.5 inch ophthalmic (eye) Q4H #3.5 09/21/23 ointment grams azithromycin 250 mg tablet See Rx Instructions PO .COMPLEX #6 10/18/23 tabs cefuroxime axetil 500 mg tablet 500 mg PO BID 7 days #14 tabs 10/18/23 famotidine 20 mg tablet (Pepcid) 20 mg PO BID abdominal discomfort 10/18/23 14 days #28 tabs ondansetron 4 mg disintegrating 4 mg PO Q8H PRN nausea and 10/18/23 tablet vomiting #20 tabs Allergies Allergy/AdvReac Type Severity Reaction Status Date / Time nafcillin Allergy Mild rash Verified 10/14/23 13:38 ENVIRONMENTAL Allergy Unknown ITCHY/RUNNY Uncoded 07/13/22 15:51 NOSE/WATERY EYES PMFSH Past Medical History Medical History Preop cardiovascular exam Leukopenia Pre-op evaluation Vaginal odor Vaginal itching Cervical cancer screening Well woman exam with routine gynecological exam Nasal abscess Physical exam Asthma exacerbation Sacroiliac joint pain Weight loss Leukopenia Potential exposure to STD Vaginal itching Encounter for IUD removal Contraceptive management Endocarditis Hepatitis C Dyslipidemia History of heroin use Lumbar degenerative disc disease Surgical History H/O LEEP H/O cosmetic surgery Family History Family History Mother No problems noted. Father Diabetes mellitus Essential hypertension Paternal Grandmother Esophageal cancer Social History Social History Household Members: Children Housing: Apartment Are you a primary manager wound care to a significant other at home: No Do you presently have visiting nurse or other home services: No Unable to assess alcohol history related to: Unable to respond Alcohol intake: never Patient Tobacco Use Status: Never used Tobacco Tobacco use type: Cigarette e-Cigarette/Vaping Use: Never Used Second Hand Smoke Exposure: No Substance Use Type: Marijuana Advance Directives: No Advance Directives Information Provided: Yes service: No Current occupational status: employed Current occupational exposures/hazards: No Gender identity: Female Cognitive needs: No Hearing needs: No Vision needs: No Physical Exam Vital Signs: Vital Signs: Last Vital Signs Temp 97.5 F 12/25/22 16:17 Pulse 68 12/25/22 16:17 Resp 16 12/25/22 16:17 BP 152/80 H 12/25/22 16:17 Pulse Ox 97 12/25/22 16:17 O2 Del Method Room Air 12/25/22 16:17 BMI result Body Mass Index 21.2 Course Course Course Narrative: This is an RME: Additional HPI, ROS, PE not included below will be deferred to primary provider. 42 year old female presents w/ frontal headache 10/10 on pain scale constant X1 week. Was seen at [facility] yesterday she had a normal head scan per patient and negative flu and covid test and gave her tylenol. No relief. No trauma. Not on thinners. Tried Excedrin 8 hours ago. Denies vision changes, dizzines, vomiting, head trauma, cp, sob, neck pain PE benign NIHSS- 0 ambulating w/ steady gait normal coordination Plan- medications. Records from [facility] asked medical secretary receptionist to obtain Medications Administered Discontinued Medications Generic Name Dose Route Start Last Admin Trade Name Freq PRN Reason Stop Dose Admin Diphenhydramine HCl 25 mg 12/25/22 16:15 12/25/22 21:00 Diphenhydramine Hcl 25 Mg Capsule PO 12/25/22 16:16 25 mg ONCE ONE Administration Diphenhydramine HCl 25 mg 12/25/22 22:24 12/25/22 23:28 Diphenhydramine Hcl 50 Mg/Ml Vial IVPUSH 12/25/22 22:25 25 mg ONCE ONE Administration Sodium Chloride 500 mls @ 999 mls/hr 12/25/22 22:30 12/25/22 23:28 Ns IV 12/25/22 23:00 999 mls/hr .Q31M SANGEETHA Administration Ketorolac Tromethamine 30 mg 12/25/22 16:15 12/25/22 21:00 Ketorolac Tromethamine 15 Mg/Ml Vial IM 12/25/22 16:16 30 mg ONCE ONE Administration Metoclopramide HCl 10 mg 12/25/22 16:15 12/25/22 21:00 Metoclopramide Hcl 10 Mg Tablet PO 12/25/22 16:16 10 mg ONCE ONE Administration Prochlorperazine Edisylate 10 mg 12/25/22 22:24 12/25/22 23:28 Prochlorperazine Edisylate 10 Mg/2 Ml Vial IVPUSH 12/25/22 22:25 10 mg ONCE ONE Administration Discharge Plan Discharge Clinical Impression: Headache Patient Disposition: Home, Self-Care Instructions: Acute Headache (DC) Prescriptions: New ibuprofen 400 mg tablet 400 mg PO Q6H PRN (Reason: pain) Qty: 20 0RF ondansetron 4 mg tablet,disintegrating 4 mg PO TID PRN (Reason: nausea and vomiting) 5 Days Qty: 10 0RF No Action albuterol sulfate 90 mcg/actuation HFA aerosol inhaler 2 puff inhalation Q4-6H PRN (Reason: shortness of breath or wheezing) Qty: 6.7 0RF ibuprofen 800 mg tablet 800 mg PO Q8H PRN (Reason: pain) 30 Days Qty: 90 1RF fluticasone propionate [Flovent HFA] 44 mcg/actuation HFA aerosol inhaler 1 puff inhalation BID PRN (Reason: Shortness Of Breath Or Wheezing) 30 Days Qty: 10.6 2RF fluticasone propionate [Flonase Allergy Relief] 50 mcg/actuation spray,suspension 2 spray intranasal DAILY Qty: 16 0RF Rx Instructions: administer into each nostril omeprazole 20 mg capsule,delayed release(DR/EC) 20 mg PO DAILY PRN (Reason: Abdominal Pain) dronabinol 2.5 mg Capsule 2.5 mg PO BID Qty: 60 5RF Rx Instructions: administer before lunch and evening meal/dinner erythromycin 5 mg/gram (0.5 %) ointment 0.5 inch ophthalmic (eye) Q4H Qty: 3.5 0RF clindamycin HCl 300 mg capsule 300 mg PO TID 7 Days Qty: 21 0RF azithromycin 250 mg tablet See Rx Instructions .ROUTE .COMPLEX Qty: 6 0RF Rx Instructions: For 250 mg dose pack: take 500 mg today (day 1), then 250 mg for 4 days (days 2-5) famotidine [Pepcid] 20 mg tablet 20 mg PO BID 14 Days Qty: 28 0RF cefuroxime axetil 500 mg tablet 500 mg PO BID 7 Days Qty: 14 0RF ondansetron 4 mg tablet,disintegrating 4 mg PO Q8H PRN (Reason: nausea and vomiting) Qty: 20 0RF Referrals: Renetta Deleon MD [Primary Care Provider] - Discharge Date/Time: 12/26/22 02:11 Print Language: Faroese
[2022-12-25 16:17] VITALS: BP 152/80; PULSE 68; RESP 16; TEMP 36.4; O2SAT 97; BMI 21.2
[2022-12-25] MEDS: Ketorolac Tromethamine 15 MG/ML VIAL 30 MG IM (21:00)
[2022-12-25] MEDS: diphenhydrAMINE HCL 25 MG CAPSULE PO (21:00)
[2022-12-25] MEDS: Metoclopramide HCl 10 MG TABLET PO (21:00)
--- NOTE | 2022-12-25 22:25 | ED_ITS ---
HPI - Headache General Chief Complaint: Headache Stated Complaint: headache Time Seen by Provider: 12/25/22 21:32 History of Present Illness HPI Narrative: Patient is a 42-year-old female complaining of headache. Patient headache is frontal in nature. Was seen at [facility]. Patient claims she had a CT scan done which was grossly negative for any acute evidence of bleeding. Sent home after some Tylenol. Complaining of the light bothering her. There is no neck pain. The headache has been ongoing since Tuesday. There is no diaphoresis. No chest pain. No neck pain. No travel history. Patient from home. No sudden in the family. No focal weakness. Related Data Home Medications Medication Instructions Recorded Confirmed fluticasone propionate 44 1 puff inhalation BID PRN 04/12/22 07/13/22 mcg/actuation HFA aerosol inhaler Shortness Of Breath Or Wheezing (Flovent HFA) omeprazole 20 mg capsule,delayed 20 mg PO DAILY PRN Abdominal Pain 04/12/22 07/13/22 release Previous Rx's Medication Instructions Recorded fluticasone propionate 50 2 spray intranasal DAILY #16 grams 11/27/21 mcg/actuation nasal spray,suspension (Flonase Allergy Relief) albuterol sulfate 90 mcg/actuation 2 puff inhalation Q4-6H PRN 01/12/22 aerosol inhaler shortness of breath or wheezing #6.7 grams ibuprofen 800 mg tablet 800 mg PO Q8H PRN pain 30 days #90 03/16/22 tabs dronabinol 2.5 mg capsule 2.5 mg PO BID #60 caps 07/13/22 ibuprofen 400 mg tablet 400 mg PO Q6H PRN pain #20 tabs 12/26/22 ondansetron 4 mg disintegrating 4 mg PO TID PRN nausea and 12/26/22 tablet vomiting 5 days #10 tabs Allergies Allergy/AdvReac Type Severity Reaction Status Date / Time nafcillin Allergy Mild rash Verified 07/13/22 15:51 ENVIRONMENTAL Allergy Unknown ITCHY/RUNNY Uncoded 07/13/22 15:51 NOSE/WATERY EYES Review of Systems Review of Systems: Co fever no chills Yes all other systems are reviewed and are negative PMFSH Past Medical History Attestation statement: The following information was validated with the patient. Medical History Dyslipidemia Endocarditis Hepatitis C History of heroin use Leukopenia Lumbar degenerative disc disease Physical exam Weight loss Surgical History H/O cosmetic surgery H/O LEEP Family History Family History Mother No problems noted. Father Diabetes mellitus Essential hypertension Paternal Grandmother Esophageal cancer Social History Social History Household Members: Children Housing: Apartment Are you a primary child care provider to a significant other at home: No Do you presently have visiting nurse or other home services: No Unable to assess alcohol history related to: Unable to respond Alcohol intake: never Patient Tobacco Use Status: Never used Tobacco Tobacco use type: Cigarette e-Cigarette/Vaping Use: Never Used Second Hand Smoke Exposure: No Substance Use Type: Marijuana Advance Directives: No Advance Directives Information Provided: No service: No Current occupational status: employed Current occupational exposures/hazards: No Gender identity: Female Cognitive needs: No Hearing needs: No Vision needs: No Physical Exam Vital Signs: Vital Signs: Last Vital Signs Temp 97.5 F 12/25/22 16:17 Pulse 68 12/25/22 16:17 Resp 16 12/25/22 16:17 BP 152/80 H 12/25/22 16:17 Pulse Ox 97 12/25/22 16:17 O2 Del Method Room Air 12/25/22 16:17 BMI result Body Mass Index 21.2 Appearance: Alert. Oriented X3. No acute distress. Eyes: Pupils equal, round and reactive to light. ENT: Pharynx normal. Neck: Normal inspection. Neck supple. No lymph nodes noted. No crepitus CVS: Normal heart rate and rhythm. Pulses normal. Normal S1 and S2 Respiratory: No respiratory distress. Breath sounds normal. No Wheezing. No rales Abdomen: Soft and nontender. No rigidity. No distention. good BS x4 Skin: Skin warm and dry. Normal skin color. Normal skin turgor. Extremities: No lower extremity edema. Neurovascular intact to all extremities. No Lacerations. No Rash Neuro: Oriented X 3. No motor deficit. No sensory deficit. Moving all extermities. No slurred speech Medications Administered Discontinued Medications Generic Name Dose Route Start Last Admin Trade Name Issa PRN Reason Stop Dose Admin Diphenhydramine HCl 25 mg 12/25/22 16:15 12/25/22 21:00 Diphenhydramine Hcl 25 Mg Capsule PO 12/25/22 16:16 25 mg ONCE ONE Administration Diphenhydramine HCl 25 mg 12/25/22 22:24 12/25/22 23:28 Diphenhydramine Hcl 50 Mg/Ml Vial IVPUSH 12/25/22 22:25 25 mg ONCE ONE Administration Sodium Chloride 500 mls @ 999 mls/hr 12/25/22 22:30 12/25/22 23:28 Ns IV 12/25/22 23:00 999 mls/hr .Q31M SANGEETHA Administration Ketorolac Tromethamine 30 mg 12/25/22 16:15 12/25/22 21:00 Ketorolac Tromethamine 15 Mg/Ml Vial IM 12/25/22 16:16 30 mg ONCE ONE Administration Metoclopramide HCl 10 mg 12/25/22 16:15 12/25/22 21:00 Metoclopramide Hcl 10 Mg Tablet PO 12/25/22 16:16 10 mg ONCE ONE Administration Prochlorperazine Edisylate 10 mg 12/25/22 22:24 12/25/22 23:28 Prochlorperazine Edisylate 10 Mg/2 Ml Vial IVPUSH 12/25/22 22:25 10 mg ONCE ONE Administration Medical Decision Making Medical Decision Making MDM Narrative: Patient well-appearing neurologically intact. Has similar headache was seen at [facility] received a CT scan of the head which was grossly negative for any acute evidence of bleeding. Will check patient's basic electrolytes. test. Patient will be given a IV migraine cocktail including Compazine, Benadryl. A bolus of IV fluid also given. Patient unlikely to have meningitis. History not consistent. Unlikely to have a bleed if a CT scan was negative. Patient has no risk factor for having a bleed. Unlikely to have meningitis his history is not consistent. No fever no chills. After migraine treatment. Patient's symptom improved dramatically. Will discharge patient home. Currently in stable condition. Differential Diagnosis Differential Diagnoses: The differential diagnosis associated with the presentation includes Migraine headache, meningitis, tension headache, intracranial bleed Discharge Plan Discharge Clinical Impression: Headache Patient Disposition: Home, Self-Care Instructions: Acute Headache (DC) Prescriptions: New ibuprofen 400 mg tablet 400 mg PO Q6H PRN (Reason: pain) Qty: 20 0RF ondansetron 4 mg tablet,disintegrating 4 mg PO TID PRN (Reason: nausea and vomiting) 5 Days Qty: 10 0RF No Action albuterol sulfate 90 mcg/actuation HFA aerosol inhaler 2 puff inhalation Q4-6H PRN (Reason: shortness of breath or wheezing) Qty: 6.7 0RF ibuprofen 800 mg tablet 800 mg PO Q8H PRN (Reason: pain) 30 Days Qty: 90 1RF fluticasone propionate [Flonase Allergy Relief] 50 mcg/actuation s pray,suspension 2 spray intranasal DAILY Qty: 16 0RF Rx Instructions: administer into each nostril fluticasone propionate [Flovent HFA] 44 mcg/actuation HFA aerosol inhaler 1 puff inhalation BID PRN (Reason: Shortness Of Breath Or Wheezing) omeprazole 20 mg capsule,delayed release(DR/EC) 20 mg PO DAILY PRN (Reason: Abdominal Pain) dronabinol 2.5 mg Capsule 2.5 mg PO BID Qty: 60 5RF Rx Instructions: administer before lunch and evening meal/dinner Referrals: Renetta Deleon MD [Primary Care Provider] -
[2022-12-25] MEDS: diphenhydrAMINE HCL 50 MG/ML VIAL 25 MG IVPUSH (23:28)
[2022-12-25] MEDS: 0.9 % Sodium Chloride 500 ML 999 ML IV (23:28)
[2022-12-25] MEDS: Prochlorperazine Edisylate 10 MG/2 ML VIAL IVPUSH (23:28)
--- NOTE | 2022-12-26 01:23 | PC.NURSE ---
pt difficult stick unable to obtain labs, phlebotomy called to draw.
--- NOTE | 2022-12-26 02:10 | PC.NURSE ---
pt assessed and discharge by provider, this Rn reviewed the discharge instructions with pt. pt verbalized understanding, no distress at this charge.
== END 2022-12-26 02:11 | disposition home or self-care (01) ==
PROVIDERS: Emergency Provider Emergency Medicine Emergency Medical Services; PCP Internal Medicine
DX: R51.9 Headache, unspecified (principal); E78.5 Hyperlipidemia, unspecified; Z79.899 Other long term (current) drug therapy
CPT/HCPCS: 96372; 96374; 96375; 99283; 99284; J1200; J1885

== ENCOUNTER 2023-09-21 03:03 | Emergency (ER) | payer OTHER, SELFPAY ==
[2023-09-21 03:22] VITALS: BP 112/76; PULSE 71; RESP 18; TEMP 36.6; O2SAT 100; BMI 20.8
--- NOTE | 2023-09-21 05:23 | PC.NURSE ---
Pt is a 42 y/o female who presents for evaluation of swelling beneath the right eye. Swelling started approximately 4 days ago and has gotten worse overtime. Pt reports touching a marijuana plant and then accidently touching her eye. Pt reports she does not feel like something is in her eye, but the swelling is getting worse and all that is draining is clear fluid. No visual disturbances reported. No other complaints today.
--- NOTE | 2023-09-21 06:55 | PC.NURSE ---
Pt is easily arousable with verbal stimuli and oncoming provider was in to see the pt.
--- NOTE | 2023-09-21 07:00 | ED.GENADULT ---
HPI - General Adult General Chief complaint: Eye Problems Stated complaint: eye inj Time Seen by Provider: 09/21/23 06:38 Source: patient Mode of arrival: ambulatory Limitations: no limitations History of Present Illness HPI narrative: Patient is a 42 year old assigned female at with history of asthma presenting to the emergency department today with right eye irritation. Patient states that 4 days ago she touched marijuana flower and then rubbed her eye and ever since she has had irritation to the right eye. Patient denies any dizziness, lightheadedness, abdominal pain, nausea, vomiting, fever, chills, blurry vision, double vision, loss of vision, chest pain, difficulty breathing, shortness of breath, back pain, night sweats, pain with urination, increased urinary frequency, increased urinary urgency, blood in her urine or stool, syncope or a near syncopal episode, recent trauma or falls, bowel incontinence, bladder incontinence, bowel retention, bladder retention, or any other complaints at this time. Onset (ago): day(s) (4) Location: eyes and right Radiation: non-radiation Severity: mild Severity scale (1-10): 3 Quality: aching and dull Pain Consistency: constant Relieving factors: none Exacerbating factors: none Associated symptoms: denies other symptoms Treatments prior to arrival: none Related Data Home Medications Medication Instructions Recorded Confirmed omeprazole 20 mg capsule,delayed 20 mg PO DAILY PRN Abdominal Pain 04/12/22 07/13/22 release Previous Rx's Medication Instructions Recorded fluticasone propionate 50 2 spray intranasal DAILY #16 grams 11/27/21 mcg/actuation nasal spray,suspension (Flonase Allergy Relief) albuterol sulfate 90 mcg/actuation 2 puff inhalation Q4-6H PRN 01/12/22 aerosol inhaler shortness of breath or wheezing #6.7 grams dronabinol 2.5 mg capsule 2.5 mg PO BID #60 caps 07/13/22 ibuprofen 400 mg tablet 400 mg PO Q6H PRN pain #20 tabs 12/26/22 ondansetron 4 mg disintegrating 4 mg PO TID PRN nausea and 12/26/22 tablet vomiting 5 days #10 tabs fluticasone propionate 44 1 puff inhalation BID PRN 03/01/23 mcg/actuation HFA aerosol inhaler Shortness Of Breath Or Wheezing 30 (Flovent HFA) days #10.6 grams ibuprofen 800 mg tablet 800 mg PO Q8H PRN pain 30 days #90 03/01/23 tabs clindamycin HCl 300 mg capsule 300 mg PO TID 7 days #21 caps 09/21/23 erythromycin 5 mg/gram (0.5 %) eye 0.5 inch ophthalmic (eye) Q4H #3.5 09/21/23 ointment grams Allergies Allergy/AdvReac Type Severity Reaction Status Date / Time nafcillin Allergy Mild rash Verified 09/21/23 03:21 ENVIRONMENTAL Allergy Unknown ITCHY/RUNNY Uncoded 07/13/22 15:51 NOSE/WATERY EYES Review of Systems Constitutional: Constitutional: Reports no additional constitutional complaints, Denies chills, Denies fever(s) and Denies night sweats Eyes: Eyes: Reports no additional eye complaints, Denies blurry vision, Denies change in vision, Denies diplopia, Reports eye discharge, Reports irritation, Denies loss of vision and Reports eye pain ENT: Denies dizziness Cardiovascular: Cardiovascular: Reports no additional cardiovascular complaints, Denies chest pain, Denies lightheadedness, Denies Loss of Consciousness and Denies dyspnea Respiratory: Respiratory: Reports no additional respiratory complaints and Denies dyspnea Gastrointestinal: Gastrointestinal: Reports no additional gastrointestinal complaints, Denies abdominal pain, Denies melena, Denies hematochezia, Denies change in bowel habits and Denies change in stool character Genitourinary: Genitourinary: Denies hematuria, Denies urinary frequency, Denies dysuria, Denies urinary incontinence, Denies urinary hesitancy and Denies urinary urgency Musculoskeletal: Musculoskeletal: Reports no additional musculoskeletal complaints, Denies numbness and Denies tingling Neurologic: Denies dizziness, Denies loss of vision, Denies numbness and Denies tingling Psychiatric: Psychiatric: Reports no additional psychiatric complaints Endocrine: Endocrine: Reports no additional endocrine complaints Hematologic/Lymphatic: Hematologic/Lymphatic: Reports no additional hematologic/lymphatic complaints Allergic/Immunologic: Allergic/Immunologic: Reports no additional allergic/immunologic complaints PMFSH Past Medical History Attestation statement: The following information was validated with the patient. Source: old records reviewed and nursing notes reviewed Medical History Preop cardiovascular exam Leukopenia Pre-op evaluation Vaginal odor Vaginal itching Cervical cancer screening Well woman exam with routine gynecological exam Nasal abscess Physical exam Asthma exacerbation Sacroiliac joint pain Weight loss Leukopenia Potential exposure to STD Vaginal itching Encounter for IUD removal Contraceptive management Endocarditis Hepatitis C Dyslipidemia History of heroin use Lumbar degenerative disc disease Surgical History H/O LEEP H/O cosmetic surgery Family History Family History Mother No problems noted. Father Diabetes mellitus Essential hypertension Paternal Grandmother Esophageal cancer Social History Social History Household Members: Children Housing: Apartment Are you a primary family day carer to a significant other at home: No Do you presently have visiting nurse or other home services: No Unable to assess alcohol history related to: Unable to respond Alcohol intake: never Patient Tobacco Use Status: Never used Tobacco Tobacco use type: Cigarette e-Cigarette/Vaping Use: Never Used Second Hand Smoke Exposure: No Substance Use Type: Marijuana Advance Directives: No Advance Directives Information Provided: No service: No Current occupational status: employed Current occupational exposures/hazards: No Gender identity: Female Cognitive needs: No Hearing needs: No Vision needs: No Physical Exam ED Vital Signs: Vital Signs - 24 hr 09/21/23 03:22 Temperature 97.9 F Pulse Rate 71 Respiratory Rate 18 Blood Pressure 112/76 Pulse Oximetry 100 Oxygen Delivery Method Room Air BMI result Body Mass Index 20.8 Const General: cooperative, no acute distress, alert and awake Nutritional Appearance: well nourished Orientation/consciousness: patient oriented x3 Limitations: no limitations [facility] Head: Yes normal to inspection and Yes atraumatic Ears: hearing grossly normal bilaterally and external ears normal General nose exam: Normal external nose present, no nasal discharge noted and no epistaxis Face and sinus: Yes normal facial exam, No abrasion and No laceration Mouth: Normal oral and palatal mucosa present, no drooling and no muffled voice Eyes Other: right eye irritation with surrounding periorbital swelling Pupils: Equal, round and reactive pupils present EOM: EOMs intact bilaterally Neck Neck: Yes normal visual inspection, Yes full ROM and Yes no lymphadenopathy Chest Chest palpation & inspection: normal inspection of the chest Resp Effort & Inspection: normal respiratory effort and able to speak in complete sentences GI Inspection: Yes normal to inspection Neuro General: patient oriented x3 and moves all extremities Cranial nerves: Yes Equal, round and reactive pupils present Cognition (Neuro): normal cognition Motor exam (neuro): 5/5 motor strength present throughout Sensory Exam: Normal double simultaneous stimulation for sensation Coordination: [id number] test normal Extrem General: Yes normal to inspection, Yes full ROM and Yes capillary refill normal Psych Appearance: grossly normal Mental Status: mental status grossly normal Affect: normal affect Attitude: cooperative Thought process: Normal thought process present Thought content: Normal thought content present Insight: Good insight present (Psych) Medical Decision Making Medical Decision Making MDM Narrative: Patient is a 42 year old assigned female at with a history of asthma presenting to the emergency department today with right eye irritation. Patient's physical exam was as noted in the physical exam portion of this note. Will cover patient for preseptal cellulitis and right eye irritation vs. corneal abrasion. I explained my physical exam findings to the patient. I answered all questions asked by the patient. I stressed the importance of the patient taking her medication as prescribed. I stressed the importance of the patient following up with her primary care provider and if symptoms persist, an receivables specialist. I stressed the importance of the patient returning to the emergency department immediately if her symptoms were to worsen or if she were to develop any dizziness, shortness of breath, difficulty breathing, chest pain, blurry vision, loss of vision, nausea, vomiting, abdominal pain, fever, chills, back pain, or any other complaints. Patient verbalized agreement and understanding with this treatment plan and discharge. Differential Diagnosis Differential Diagnoses: The differential diagnosis associated with the presentation includes Preseptal cellulitis Periorbital cellulitis Corneal abrasion Eye irritation Admission/Observation Consideration of admission/observation: Escalation of care including admission/observation considered Patient would have been admitted to the hospital had her work up had any findings where hospital admission was appropriate and her clinical presentation warranted hospital admission. Prescription Management I considered prescription management with: Antibiotic (patient prescribed an antibiotic to over for corneal abrasion and for preseptal cellulitis) Discharge Plan Discharge Clinical Impression: Preseptal cellulitis, Eye irritation Patient Disposition: Home, Self-Care Instructions: Eye Pain (ED), Periorbital Cellulitis in Adults (ED) Additional Instructions: Follow up with your primary care provider. Return to the emergency department immediately if your symptoms worsen or if you develop any dizziness, shortness of breath, difficulty breathing, chest pain, blurry vision, loss of vision, nausea, vomiting, abdominal pain, fever, chills, back pain, or any other complaints. Prescriptions: New erythromycin 5 mg/gram (0.5 %) ointment 0.5 inch ophthalmic (eye) Q4H Qty: 3.5 0RF clindamycin HCl 300 mg capsule 300 mg PO TID 7 Days Qty: 21 0RF No Action albuterol sulfate 90 mcg/actuation HFA aerosol inhaler 2 puff inhalation Q4-6H PRN (Reason: shortness of breath or wheezing) Qty: 6.7 0RF ibuprofen 800 mg tablet 800 mg PO Q8H PRN (Reason: pain) 30 Days Qty: 90 1RF fluticasone propionate [Flovent HFA] 44 mcg/actuation HFA aerosol inhaler 1 puff inhalation BID PRN (Reason: Shortness Of Breath Or Wheezing) 30 Days Qty: 10.6 2RF fluticasone propionate [Flonase Allergy Relief] 50 mcg/actuation spray,suspension 2 spray intranasal DAILY Qty: 16 0RF Rx Instructions: administer into each nostril omeprazole 20 mg capsule,delayed release(DR/EC) 20 mg PO DAILY PRN (Reason: Abdominal Pain) dronabinol 2.5 mg Capsule 2.5 mg PO BID Qty: 60 5RF Rx Instructions: administer before lunch and evening meal/dinner ibuprofen 400 mg tablet 400 mg PO Q6H PRN (Reason: pain) Qty: 20 0RF ondansetron 4 mg tablet,disintegrating 4 mg PO TID PRN (Reason: nausea and vomiting) 5 Days Qty: 10 0RF Referrals: [facility] Family Medicine [Provider Group] (Call to establish and follow up with a primary care provider. If you already have a primary care provider, please follow up with them. Llame para establecer y realizar un seguimiento con un proveedor de atenci?n primaria. Si ya tiene un proveedor de atenci?n primaria, john un seguimiento con ?l.) [facility] [Provider Group] (Call to establish and follow up with a primary care provider. If you already have a primary care provider, please follow up with them. Llame para establecer y realizar un seguimiento con un proveedor de atenci?n primaria. Si ya tiene un proveedor de atenci?n primaria, john un seguimiento con ?l.) [facility] [Provider Group] (Call to establish and follow up with a primary care provider. If you already have a primary care provider, please follow up with them. Llame para establecer y realizar un seguimiento con un proveedor de atenci?n primaria. Si ya tiene un proveedor de atenci?n primaria, john un seguimiento con ?l.) Cedric Woodruff [Physician] - (Call to establish and follow up with an receivables specialist if symptoms continue. Llame para establecer y realizar un seguimiento con un oftalm?logo si los s?ntomas contin?an.) Stand Alone Forms: Work/School Release Interventions: ED Discharge Assessment Last Done: 09/21/23 07:20 Discharge Date/Time: 09/21/23 07:22 Print Language: Lithuanian
== END 2023-09-21 07:22 | disposition home or self-care (01) ==
PROVIDERS: Emergency Provider Emergency Medicine Emergency Medical Services
DX: L03.213 Periorbital cellulitis (principal); J45.909 Unspecified asthma, uncomplicated
CPT/HCPCS: 99283; 99284

== ENCOUNTER 2023-10-14 12:56 | Emergency (ER) | payer OTHER, SELFPAY ==
--- NOTE | ~2023-10-14 | XR_ITS ---
EXAMINATION: XR CHEST CLINICAL INFORMATION: Cough. COMPARISON: None available. TECHNIQUE: 2 views of the chest were obtained. FINDINGS: No significant abnormality is noted involving the heart, lungs, mediastinum, bony thorax or soft tissues. XR/XR chest 2V IMPRESSION: Unremarkable chest examination.
[2023-10-14 13:38] VITALS: BP 123/70; PULSE 57; RESP 16; TEMP 36.7; O2SAT 98; BMI 21.5
--- NOTE | 2023-10-14 13:39 | ED_ITS ---
HPI - General Adult General Chief complaint: Upper Respiratory Symptoms Stated complaint: headache Nausea, chills, multiple comp. Time Seen by Provider: 10/14/23 16:48 Source: patient, RN notes reviewed and old records reviewed Mode of arrival: ambulatory History of Present Illness HPI narrative: 42-year-old female with past medical history of asthma, HLD, presenting to the ED complaining of headache, nausea, chills, epigastric discomfort, subjective fever, rhinorrhea x4 days. Denies chest pain, shortness of breath, recent travel, suspicious food intake, vomiting, diarrhea, dysuria. + sick contacts Related Data Home Medications Medication Instructions Recorded Confirmed omeprazole 20 mg capsule,delayed 20 mg PO DAILY PRN Abdominal Pain 04/12/22 07/13/22 release Previous Rx's Medication Instructions Recorded fluticasone propionate 50 2 spray intranasal DAILY #16 grams 11/27/21 mcg/actuation nasal spray,suspension (Flonase Allergy Relief) albuterol sulfate 90 mcg/actuation 2 puff inhalation Q4-6H PRN 01/12/22 aerosol inhaler shortness of breath or wheezing #6.7 grams dronabinol 2.5 mg capsule 2.5 mg PO BID #60 caps 07/13/22 ibuprofen 400 mg tablet 400 mg PO Q6H PRN pain #20 tabs 12/26/22 ondansetron 4 mg disintegrating 4 mg PO TID PRN nausea and 12/26/22 tablet vomiting 5 days #10 tabs fluticasone propionate 44 1 puff inhalation BID PRN 03/01/23 mcg/actuation HFA aerosol inhaler Shortness Of Breath Or Wheezing 30 (Flovent HFA) days #10.6 grams ibuprofen 800 mg tablet 800 mg PO Q8H PRN pain 30 days #90 03/01/23 tabs clindamycin HCl 300 mg capsule 300 mg PO TID 7 days #21 caps 09/21/23 erythromycin 5 mg/gram (0.5 %) eye 0.5 inch ophthalmic (eye) Q4H #3.5 09/21/23 ointment grams Allergies Allergy/AdvReac Type Severity Reaction Status Date / Time nafcillin Allergy Mild rash Verified 10/14/23 13:38 ENVIRONMENTAL Allergy Unknown ITCHY/RUNNY Uncoded 07/13/22 15:51 NOSE/WATERY EYES Review of Systems Review of Systems: Constitutional: +Subj Fever, + Chills, +malaise ENT/Mouth: No Ear Pain, + Nasal Congestion, No sore throat, No Rhinorrhea, No Swallowing Difficulty Cardiovascular: No Chest Pain, No SOB Respiratory: No Cough, No Sputum, No Wheezing Gastrointestinal: +Nausea, No Vomiting, No Diarrhea, No Constipation, + Abdominal pain Genitourinary: No Dysuria, No Hematuria, No Urgency, No Flank Pain Musculoskeletal: No joint pain, + Myalgias, No Joint Swelling Skin: No Skin Lesions, No rash Neuro: + Weakness, No Numbness, No Paresthesias, +SCRUGGS Yes all other systems are reviewed and are negative Constitutional: Constitutional: Reports as per [facility] Past Medical History Attestation statement: The following information was validated with the patient. Source: old records reviewed Onset Date is defined in the Problem List Problems that require an onset date and time if occurred within 24 hrs of arrival to the ED Aortic Dissection and Rupture; Neurologic impairment; Cardiopulmonary Arrest; Endotracheal Intubation; Insertion or Replacement of Mechanical Circulatory Assist Device Medical History Preop cardiovascular exam Leukopenia Pre-op evaluation Vaginal odor Vaginal itching Cervical cancer screening Well woman exam with routine gynecological exam Nasal abscess Physical exam Asthma exacerbation Sacroiliac joint pain Weight loss Leukopenia Potential exposure to STD Vaginal itching Encounter for IUD removal Contraceptive management Endocarditis Hepatitis C Dyslipidemia History of heroin use Lumbar degenerative disc disease Surgical History H/O LEEP H/O cosmetic surgery Family History Family History Mother No problems noted. Father Diabetes mellitus Essential hypertension Paternal Grandmother Esophageal cancer Social History Social History Household Members: Children Housing: Apartment Are you a primary care provider to a significant other at home: No Do you presently have visiting nurse or other home services: No Unable to assess alcohol history related to: Unable to respond Alcohol intake: never Patient Tobacco Use Status: Never used Tobacco Tobacco use type: Cigarette e-Cigarette/Vaping Use: Never Used Second Hand Smoke Exposure: No Substance Use Type: Marijuana Advance Directives: No Advance Directives Information Provided: No service: No Current occupational status: employed Current occupational exposures/hazards: No Gender identity: Female Cognitive needs: No Hearing needs: No Vision needs: No Physical Exam ED Vital Signs: Vital Signs - 24 hr 10/14/23 13:38 Temperature 98.0 F Pulse Rate 57 Respiratory Rate 16 Blood Pressure 123/70 Pulse Oximetry 98 Oxygen Delivery Method Room Air BMI result Body Mass Index 21.5 Const General: cooperative, healthy appearing and no acute distress Orientation/consciousness: patient oriented x3 Limitations: no limitations HENMT Head: Yes normal to inspection and Yes atraumatic Ears: hearing grossly normal bilaterally General nose exam: Normal external nose present Face and sinus: Yes normal facial exam Mouth: Normal oral and palatal mucosa present Throat: Yes posterior oropharynx normal, Yes tonsils normal, Yes uvula midline, No peritonsillar mass and No uvular edema Eyes General: appearance normal, both eyes and all related structures EOM: EOMs intact bilaterally Neck Neck: Yes normal visual inspection and Yes no meningeal signs Resp Effort & Inspection: normal respiratory effort, no respiratory distress and no stridor Auscultation: clear to auscultation bilaterally, no crackles and no wheezes Cardio Rate: regular rate Heart sounds: S1 normal heart sound present and S2 normal heart sound present GI Inspection: Yes normal to inspection Palpation (GI): Soft to palpation, nontender, no guarding and not rigid Skin Rashes: no rashes Wounds: no wounds Neuro General: patient oriented x3, gait normal, tone normal, moves all extremities, no meningeal signs and no focal motor deficits Cranial nerves: Yes CN's II-XII intact bilaterally Gait exam (Neuro): Normal gait present Extrem General: Yes normal to inspection Course Course Course Narrative: FAWN 13:40pm 42yoF presenting with general vague complaints which include Chills, nausea, cough with chest congestion, general abd pain, back pain for the past 4 days. 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 No recent travel. She denies measured fevers, changes in vision, sore throat, trouble swallowing or breathing, diarrhea constipation, dysuria hematuria or any other symptoms complaints or concerns at this time. Plan: COVID and flu swab along with chest x-ray. Patient is sent back to the waiting room to be evaluated in [facility]. XR chest 2V IMPRESSION: Unremarkable chest examination. -influenza A positive Results discussed with patient including worrisome signs and symptoms and strict return precautions, and when to return to the emergency department. They verbalized understanding and feel safe for discharge at this time. Medications Administered Discontinued Medications Generic Name Dose Route Start Last Admin Trade Name Freq PRN Reason Stop Dose Admin Acetaminophen/Butalbital/Caffeine 1 tab 10/14/23 17:07 10/14/23 17:29 Butalb/Acetamin/Caff 50/325/40 Tablet PO 10/14/23 17:08 1 tab ONCE ONE Administration Medical Decision Making Medical Decision Making MDM Narrative: 42-year-old female with past medical history of asthma, HLD, presenting to the [facility] complaining of headache, nausea, chills, epigastric discomfort, subjective fever, rhinorrhea x4 days. On exam vital signs stable, afebrile, NAD, nontoxic appearing, lungs CTA, oropharynx WNL, abdomen soft/nontender. Concern for viral illness vs gastroenteritis. Low suspicion for pneumonia, ACS, PE, appendicitis/diverticulitis Plan: Viral testing, CXR ordered in triage Please refer to course for remaining clinical decision making, interpretation of labs/imaging results, and discussions with consultants and/or family members. Differential Diagnosis Differential Diagnoses: The differential diagnosis associated with the presentation includes As above Lab Data [facility] Lab Attestation statement: I reviewed the patient's lab results. Labs: Lab Results 10/14/23 Range/Units 14:42 COVID-19 ([facility]) Negative (Negative) COVID-19 Clin Com See Note Influenza Type A ([facility]) Positive A (Negative) Influenza Type B ([facility]) Negative (Negative) Influenza A & B Note See Note Radiology Impression Discussion of test interpretation with radiology: I have reviewed the radiologist's reading. External Record Review External record reviewed: Inpatient record, Office record, Outpatient record, Prior outpatient labs, Prior outpatient radiology, Primary care record and Outside ED record Tests considered The following testing was considered but not selected: As above Prescription Management I considered prescription management with: Pain Medication, Antiviral and Antibiotic Discharge Plan Discharge Clinical Impression: Influenza Patient Disposition: Home, Self-Care Instructions: Influenza (DC) Additional Instructions: You have the flu No antibiotics are indicated at this time Make sure you are staying hydrated. Drink plenty of fluids. Rest Alternate Tylenol and Motrin at home as needed for body aches and fever Follow-up with your doctor. If symptoms persist or worsen return to the emergency department *If you are a child & not tolerating liquid or urinating for more than 6 hours, or fevers are uncontrolled with medications at home, return to the emergency department* Prescriptions: No Action albuterol sulfate 90 mcg/actuation HFA aerosol inhaler 2 puff inhalation Q4-6H PRN (Reason: shortness of breath or wheezing) Qty: 6.7 0RF ibuprofen 800 mg tablet 800 mg PO Q8H PRN (Reason: pain) 30 Days Qty: 90 1RF fluticasone propionate [Flovent HFA] 44 mcg/actuation HFA aerosol inhaler 1 puff inhalation BID PRN (Reason: Shortness Of Breath Or Wheezing) 30 Days Qty: 10.6 2RF fluticasone propionate [Flonase Allergy Relief] 50 mcg/actuation spray,suspension 2 spray intranasal DAILY Qty: 16 0RF Rx Instructions: administer into each nostril omeprazole 20 mg capsule,delayed release(DR/EC) 20 mg PO DAILY PRN (Reason: Abdominal Pain) dronabinol 2.5 mg Capsule 2.5 mg PO BID Qty: 60 5RF Rx Instructions: administer before lunch and evening meal/dinner ibuprofen 400 mg tablet 400 mg PO Q6H PRN (Reason: pain) Qty: 20 0RF ondansetron 4 mg tablet,disintegrating 4 mg PO TID PRN (Reason: nausea and vomiting) 5 Days Qty: 10 0RF erythromycin 5 mg/gram (0.5 %) ointment 0.5 inch ophthalmic (eye) Q4H Qty: 3.5 0RF clindamycin HCl 300 mg capsule 300 mg PO TID 7 Days Qty: 21 0RF Referrals: Renetta Deleon MD [Primary Care Provider] - 1 week Stand Alone Forms: Work/School Release
[2023-10-14 15:21] LABS: COVID-19 Test Negative (Negative); IDNOW Serial# 08D9AD1C; IDNOW Serial# 152EDE1D; Influenza A Positive (Negative); Influenza B2 Negative (Negative)
[2023-10-14] MEDS: Butalb/Acetamin/Caff 50/325/40 TABLET 1 TAB PO (17:29)
== END 2023-10-14 18:22 | disposition home or self-care (01) ==
PROVIDERS: Physician Assistant Medical; Emergency Provider Emergency Medicine Emergency Medical Services; PCP Internal Medicine
DX: J10.1 Influenza due to other identified influenza virus with other respiratory manifestations (principal); Z11.52 Encounter for screening for COVID-19; E78.5 Hyperlipidemia, unspecified
CPT/HCPCS: 71046; 87502; 87635; 99283

== ENCOUNTER 2023-10-17 23:27 | Emergency (ER) | payer OTHER, SELFPAY ==
--- NOTE | ~2023-10-17 | XR_ITS ---
EXAMINATION: XR CHEST CLINICAL INFORMATION: Cough, fever COMPARISON: 10/14/2023 TECHNIQUE: Frontal view of the chest was obtained. FINDINGS: Lung volumes are symmetric. There is mild streaky left basilar opacity more suggestive of atelectasis. No additional focal consolidation is seen. No evidence of pneumothorax, significant pleural effusion, or pulmonary edema. The cardiomediastinal contour is unremarkable. No acute osseous findings are seen. XR/XR chest 1V IMPRESSION: Mild streaky left basilar opacity suggestive of atelectasis. However, if symptoms persist, short-term follow-up PA and lateral radiographs are recommended.
[2023-10-17 23:48] VITALS: BP 146/83; PULSE 119; RESP 18; TEMP 36.9; O2SAT 96; BMI 18.9
[2023-10-18 00:06] VITALS: BP 104/72; PULSE 94; TEMP 36.5; O2SAT 97
--- NOTE | 2023-10-18 00:15 | ED_ITS ---
HPI - General Adult General Chief complaint: General Medical Stated complaint: Flu+ 3 days ago, not feeling better Time Seen by Provider: 10/18/23 00:03 Source: patient and old records reviewed Mode of arrival: ambulatory Limitations: no limitations History of Present Illness HPI narrative: 42 yo female with PMH of asthma, HLD, no active IVDA, prior hep C she reports dx of Flu A on 10/14 she is not vaccinated. She notes she still doesn't feel well and it's been a weak. She cannot eat she has nausea her upper abdomen is sore, she has a cough, she feels weak, she's lost 10lbs. She takes tylenol but then her fever and symptoms come back. MD complaint: flu like illness Onset (ago): week(s) (1) Radiation: non-radiation Severity: moderate Quality: aching Pain Consistency: constant Relieving factors: none Exacerbating factors: movement Associated symptoms: cough, fever/chills, headaches, loss of appetite, malaise, nausea/vomiting and weakness Treatments prior to arrival: cold therapy and other (tylenol) Related Data Home Medications Medication Instructions Recorded Confirmed omeprazole 20 mg capsule,delayed 20 mg PO DAILY PRN Abdominal Pain 04/12/22 07/13/22 release Previous Rx's Medication Instructions Recorded fluticasone propionate 50 2 spray intranasal DAILY #16 grams 11/27/21 mcg/actuation nasal spray,suspension (Flonase Allergy Relief) albuterol sulfate 90 mcg/actuation 2 puff inhalation Q4-6H PRN 01/12/22 aerosol inhaler shortness of breath or wheezing #6.7 grams dronabinol 2.5 mg capsule 2.5 mg PO BID #60 caps 07/13/22 ibuprofen 400 mg tablet 400 mg PO Q6H PRN pain #20 tabs 12/26/22 ondansetron 4 mg disintegrating 4 mg PO TID PRN nausea and 12/26/22 tablet vomiting 5 days #10 tabs fluticasone propionate 44 1 puff inhalation BID PRN 03/01/23 mcg/actuation HFA aerosol inhaler Shortness Of Breath Or Wheezing 30 (Flovent HFA) days #10.6 grams ibuprofen 800 mg tablet 800 mg PO Q8H PRN pain 30 days #90 03/01/23 tabs clindamycin HCl 300 mg capsule 300 mg PO TID 7 days #21 caps 09/21/23 erythromycin 5 mg/gram (0.5 %) eye 0.5 inch ophthalmic (eye) Q4H #3.5 09/21/23 ointment grams azithromycin 250 mg tablet See Rx Instructions PO .COMPLEX #6 10/18/23 tabs cefuroxime axetil 500 mg tablet 500 mg PO BID 7 days #14 tabs 10/18/23 famotidine 20 mg tablet (Pepcid) 20 mg PO BID abdominal discomfort 10/18/23 14 days #28 tabs ondansetron 4 mg disintegrating 4 mg PO Q8H PRN nausea and 10/18/23 tablet vomiting #20 tabs Allergies Allergy/AdvReac Type Severity Reaction Status Date / Time nafcillin Allergy Mild rash Verified 10/14/23 13:38 ENVIRONMENTAL Allergy Unknown ITCHY/RUNNY Uncoded 07/13/22 15:51 NOSE/WATERY EYES Review of Systems 2 Review of Systems: Constitutional : pos Fever, pos Chills, pos Fatigue ENT/Mouth : pos sore throat, No Rhinorrhea Eyes: No Eye Pain, No Swelling, No Redness Cardiovascular : No Chest Pain, No SOB, No Dyspnea on Exertion Respiratory : pos Cough, No Sputum Gastrointestinal : pos Nausea, pos Vomiting, No Diarrhea, pos abdominal Pain Genitourinary : No Dysuria, No Urinary Frequency, No Hematuria, Musculoskeletal : No joint pain, No Myalgias, No Joint Swelling Skin : No Skin Lesions, No rash Neuro : pos Weakness, No Numbness, No Dizziness, positive Headache Psych : No Anxiety/Panic, No Depression Heme/Lymph: No Bruising, No Bleeding,No Lymphadenopathy Endocrine : No Polyuria, No Polydipsia All other systems reviewed and are negative [facility] Past Medical History Attestation statement: The following information was validated with the patient. Source: old records reviewed Medical History Preop cardiovascular exam Leukopenia Pre-op evaluation Vaginal odor Vaginal itching Cervical cancer screening Well woman exam with routine gynecological exam Nasal abscess Physical exam Asthma exacerbation Sacroiliac joint pain Weight loss Leukopenia Potential exposure to STD Vaginal itching Encounter for IUD removal Contraceptive management Endocarditis Hepatitis C Dyslipidemia History of heroin use Lumbar degenerative disc disease Surgical History H/O LEEP H/O cosmetic surgery Family History Family History Mother No problems noted. Father Diabetes mellitus Essential hypertension Paternal Grandmother Esophageal cancer Social History Social History Household Members: Children Housing: Apartment Are you a primary school child care attendant to a significant other at home: No Do you presently have visiting nurse or other home services: No Unable to assess alcohol history related to: Unable to respond Alcohol intake: never Patient Tobacco Use Status: Never used Tobacco Tobacco use type: Cigarette e-Cigarette/Vaping Use: Never Used Second Hand Smoke Exposure: No Substance Use Type: Marijuana Advance Directives: No Advance Directives Information Provided: Yes service: No Current occupational status: employed Current occupational exposures/hazards: No Gender identity: Female Cognitive needs: No Hearing needs: No Vision needs: No Physical Exam ED Vital Signs: Vital Signs - 24 hr 10/17/23 23:48 10/18/23 00:06 Temperature 98.4 F 97.7 F Pulse Rate 119 H 94 Respiratory Rate 18 Blood Pressure 146/83 H 104/72 Pulse Oximetry 96 97 Oxygen Delivery Method Room Air Room Air BMI result Body Mass Index 18.9 Appearance: Alert. Oriented X3. No acute distress. Eyes: Pupils equal, round and reactive to light. ENT: Pharynx mild dry MM Neck: Normal inspection. Neck supple. CVS: Normal heart rate and rhythm. Pulses normal. Respiratory: No respiratory distress. Breath sounds rales L base Abdomen: Soft and mild epigastric ttp Skin: Skin warm and dry. Normal skin color. Normal skin turgor. Extremities: No lower extremity edema. No calf ttp Neuro: Oriented X 3. No motor deficit. No sensory deficit. Medications Administered Generic Name Dose Route Start Last Admin Trade Name Freq PRN Reason Stop Dose Admin Sodium Chloride 1,000 mls @ 999 mls/hr 10/18/23 00:45 10/18/23 00:56 Ns IV 10/18/23 01:45 999 mls/hr .Q1H1M SANGEETHA Administration Discontinued Medications Generic Name Dose Route Start Last Admin Trade Name Freq PRN Reason Stop Dose Admin Famotidine 20 mg 10/18/23 00:32 10/18/23 00:59 Famotidine/Pf 20 Mg/2 Ml Vial IVPUSH 10/18/23 00:33 20 mg ONCE ONE Administration Ondansetron HCl 4 mg 10/18/23 00:32 10/18/23 00:59 Ondansetron Hcl 4 Mg/2 Ml Vial IVPUSH 10/18/23 00:33 4 mg ONCE ONE Administration Medical Decision Making Medical Decision Making [facility] Narrative: 42 yo female with PMH of asthma, HLD, no active IVDA, prior hep C here with c/o persistent symptoms after Flu A diagnosis on 10/14 she did not receive tamiflu she did not get vaccine. At this time will need basic labs, CXR as I suspect possible pneumonia. She is not toxic but appears tired and slightly pale. Will hydrate x 2L, provide nausea medications. Differential Diagnosis Differential Diagnoses: The differential diagnosis associated with the presentation includes viral syndrome, dehydration, pneumonia Admission/Observation Consideration of admission/observation: Escalation of care including admission/observation considered VS stable, able to tolerate PO, no hypoxia Lab Data [facility] Lab Attestation statement: I reviewed the patient's lab results. 10/18/23 01:09 10/18/23 01:09 Labs: Lab Results 10/18/23 Range/Units 01:09 WBC 7.6 (4.8-10.8) X10*3/uL RBC 4.51 (4.20-5.50) X10*6/uL Hgb 14.2 (12.0-16.0) g/dl Hct 38.8 (37.0-47.0) % MCV 86.0 (80.0-98.0) fL MCH 31.5 (27.0-33.0) pg MCHC 36.6 H (31.0-35.0) g/dl RDW 11.2 (11.0-16.0) % Plt Count 174 D (160-400) X10*3/uL MPV 9.5 (9.4-12.3) fL Immature Gran % (Auto) 0.1 (0.0-0.4) % Neut % (Auto) 74.3 H (45-73) % Lymph % (Auto) 16.8 L (20-40) % [place] % (Auto) 8.4 (2-11) % Eos % (Auto) 0.1 (0-4) % Baso % (Auto) 0.3 (0-2) % Lymph # (Auto) 1.3 (1.2-4.9) X10*3/uL [place] # (Auto) 0.6 (0.1-1.2) X10*3/uL Eos # (Auto) 0.0 (0.0-0.4) X10*3/uL Baso # (Auto) 0.0 (0.0-0.2) X10*3/uL Abs Immat Gran (auto) 0.01 (0.00-0.03) X10*3/uL Absolute Neuts (auto) 5.7 (2.0-8.3) x10*3/uL Absolute Nucleated RBC 0.000 (0.0-0.012) X10*3/uL Nucleated RBC % (auto) 0.0 (0.0-0.2) /100WBC Sodium 136 (135-145) mmol/L Potassium 3.8 (3.3-5.1) mmol/L Chloride 104 (96-108) mmol/L Carbon Dioxide 22 (22-29) mmol/L Anion Gap 14 (12-20) BUN 11 (9-16) mg/dL Creatinine 0.61 (0.5-1.4) mg/dL Estim Creat Clear Calc 99.6 Estimated GFR > 60 Random Glucose 91 (60-115) mg/dL Calcium 9.8 (8.4-10.2) mg/dL Magnesium 1.8 (1.6-2.6) mg/dL Total Bilirubin 0.4 (0.0-1.0) mg/dL Direct Bilirubin 0.1 (0.0-0.5) mg/dL AST 20 (5-31) U/L ALT 17 (0-31) U/L Alkaline Phosphatase 43 (39-117) U/L Total Protein 8.3 H (6.5-8.0) g/dL Albumin 4.1 (3.5-5.0) g/dL Independent Interpretation I performed an independent interpretation of an: Plain X-Ray (?LLL opacity) Radiology Impression Discussion of test interpretation with radiology: I have reviewed the radiologist's reading. External Record Review External record reviewed: Inpatient record Prescription Management I considered prescription management with: Antibiotic and Other Discharge Plan Discharge Clinical Impression: Nausea & vomiting Qualifiers: Vomiting type: unspecified Qualified Code(s): R11.2 - Nausea with vomiting, unspecified Pneumonia Qualifiers: Pneumonia type: due to unspecified organism Laterality: left Lung location: l ower lobe of lung Qualified Code(s): J18.9 - Pneumonia, unspecified organism Patient Disposition: Home, Self-Care Instructions: Acute Nausea and Vomiting (ED), Community Acquired Pneumonia (ED) Additional Instructions: return for inability to eat or drink, worsening symptoms, chest pain, trouble breathing, or any other concerns. please finish all antibiotics - can start in AM. take a probiotic Prescriptions: New azithromycin 250 mg tablet See Rx Instructions .ROUTE .COMPLEX Qty: 6 0RF Rx Instructions: For 250 mg dose pack: take 500 mg today (day 1), then 250 mg for 4 days (days 2-5) famotidine [Pepcid] 20 mg tablet 20 mg PO BID 14 Days Qty: 28 0RF cefuroxime axetil 500 mg tablet 500 mg PO BID 7 Days Qty: 14 0RF ondansetron 4 mg tablet,disintegrating 4 mg PO Q8H PRN (Reason: nausea and vomiting) Qty: 20 0RF No Action albuterol sulfate 90 mcg/actuation HFA aerosol inhaler 2 puff inhalation Q4-6H PRN (Reason: shortness of breath or wheezing) Qty: 6.7 0RF ibuprofen 800 mg tablet 800 mg PO Q8H PRN (Reason: pain) 30 Days Qty: 90 1RF fluticasone propionate [Flovent HFA] 44 mcg/actuation HFA aerosol inhaler 1 puff inhalation BID PRN (Reason: Shortness Of Breath Or Wheezing) 30 Days Qty: 10.6 2RF fluticasone propionate [Flonase Allergy Relief] 50 mcg/actuation spray,suspension 2 spray intranasal DAILY Qty: 16 0RF Rx Instructions: administer into each nostril omeprazole 20 mg capsule,delayed release(DR/EC) 20 mg PO DAILY PRN (Reason: Abdominal Pain) dronabinol 2.5 mg Capsule 2.5 mg PO BID Qty: 60 5RF Rx Instructions: administer before lunch and evening meal/dinner ibuprofen 400 mg tablet 400 mg PO Q6H PRN (Reason: pain) Qty: 20 0RF ondansetron 4 mg tablet,disintegrating 4 mg PO TID PRN (Reason: nausea and vomiting) 5 Days Qty: 10 0RF erythromycin 5 mg/gram (0.5 %) ointment 0.5 inch ophthalmic (eye) Q4H Qty: 3.5 0RF clindamycin HCl 300 mg capsule 300 mg PO TID 7 Days Qty: 21 0RF Stand Alone Forms: Work/School Release
[2023-10-18] MEDS: 0.9 % Sodium Chloride 1,000 ML 999 ML IV (00:56)
[2023-10-18] MEDS: ondansetron HCL 4 MG/2 ML VIAL IVPUSH (00:59)
[2023-10-18] MEDS: Famotidine/PF 20 MG/2 ML VIAL IVPUSH (00:59)
[2023-10-18 01:13] LABS: MANUAL DIFF FLAG NO
[2023-10-18 01:15] LABS: Basophils Percent Auto 0.3 % (0-2); Eosinophils Percent Auto 0.1 % (0-4); Hematocrit 38.8 % (37.0-47.0); Hemoglobin 14.2 g/dl (12.0-16.0); Imm Gran Abs Auto 0.01 X10*3/uL (0.00-0.03); Imm Gran Pct Auto 0.1 % (0.0-0.4); Lymphocytes Absolute Auto 1.3 X10*3/uL (1.2-4.9); Lymphocytes Percent Auto 16.8 % (20-40); Mean Corpuscular HGB Conc 36.6 g/dl (31.0-35.0); Mean Corpuscular Hemoglobin 31.5 pg (27.0-33.0); Mean Platelet Volume 9.5 fL (9.4-12.3); Monocytes Absolute Auto 0.6 X10*3/uL (0.1-1.2); Monocytes Percent Auto 8.4 % (2-11); Neutrophils Absolute Auto 5.7 x10*3/uL (2.0-8.3); Neutrophils Percent Auto 74.3 % (45-73); Platelet Count 174 X10*3/uL (160-400); Red Blood Count 4.51 X10*6/uL (4.20-5.50); Red Cell Distribution Width 11.2 % (11.0-16.0); White Blood Count 7.6 X10*3/uL (4.8-10.8)
[2023-10-18 01:29] LABS: Alanine Aminotransferase 17 U/L (0-31); Albumin Level 4.1 g/dL (3.5-5.0); Alkaline Phosphatase 43 U/L (39-117); Anion Gap 14 (12-20); Aspartate Amino Transferase 20 U/L (5-31); Bilirubin Direct 0.1 mg/dL (0.0-0.5); Bilirubin Total 0.4 mg/dL (0.0-1.0); Blood Urea Nitrogen 11 mg/dL (9-16); Calcium 9.8 mg/dL (8.4-10.2); Carbon Dioxide 22 mmol/L (22-29); Chloride 104 mmol/L (96-108); Creatinine Clr Calc Pharmacy 99.6; Estimated Glomerular Filt Rate > 60; Glucose Random 91 mg/dL (60-115); Magnesium 1.8 mg/dL (1.6-2.6); Potassium 3.8 mmol/L (3.3-5.1); Sodium 136 mmol/L (135-145); Total Protein 8.3 g/dL (6.5-8.0)
[2023-10-18] MEDS: cefTRIAXone sodium 1 GM in 0.9 % Sodium Chloride 50 ML IV (02:52)
== END 2023-10-18 03:40 | disposition home or self-care (01) ==
PROVIDERS: Emergency Provider Emergency Medicine; PCP Internal Medicine
DX: R11.2 Nausea with vomiting, unspecified (principal); J18.9 Pneumonia, unspecified organism
CPT/HCPCS: 36415; 71045; 80048; 80076; 83735; 85025; 96361; 96365; 96375; 99283; 99284; J0696; J2405

== ENCOUNTER 2025-05-07 08:20 | Outpatient (REF) | payer OTHER, SELFPAY ==
[2025-05-07 10:04] LABS: MANUAL DIFF FLAG NO
[2025-05-07 10:21] LABS: Hematocrit 37.3 % (37.0-47.0); Hemoglobin 13.0 g/dl (12.0-16.0); Imm Gran Abs Auto 0.01 X10*3/uL (0.00-0.03); Imm Gran Pct Auto 0.3 % (0.0-0.4); Lymphocytes Absolute Auto 1.6 X10*3/uL (1.2-4.9); Mean Corpuscular HGB Conc 34.9 g/dl (31.0-35.0); Mean Corpuscular Hemoglobin 31.6 pg (27.0-33.0); Mean Corpuscular Volume 90.8 fL (80.0-98.0); NRBC Abs Auto 0.000 X10*3/uL (0.0-0.012); NRBC Pct Auto 0.0 /100WBC (0.0-0.2); Platelet Count 245 X10*3/uL (160-400); Red Blood Count 4.11 X10*6/uL (4.20-5.50); White Blood Count 4.0 X10*3/uL (4.8-10.8)
[2025-05-07 11:43] LABS: Alanine Aminotransferase 27 U/L (0-31); Albumin Level 4.2 g/dL (3.5-5.0); Alkaline Phosphatase 49 U/L (39-117); Anion Gap 10 (12-20); Aspartate Amino Transferase 26 U/L (5-31); Blood Urea Nitrogen 13 mg/dL (9-16); Calcium 8.9 mg/dL (8.4-10.2); Carbon Dioxide 28 mmol/L (22-29); Chloride 106 mmol/L (96-108); Estimated Glomerular Filt Rate > 60; Potassium 3.9 mmol/L (3.3-5.1); Sodium 140 mmol/L (135-145); Total Protein 7.4 g/dL (6.5-8.0)
== END 2025-05-07 08:21 | disposition home or self-care (01) ==
LOC: HO.HMGCLDS 08:20
PROVIDERS: PCP Internal Medicine; Visit Provider Physician Assistant Medical
DX: R42 Dizziness and giddiness (principal); R11.0 Nausea
CPT/HCPCS: 36415; 80053; 84443; 85025

== ENCOUNTER 2025-05-07 08:20 | Outpatient (AMB) | payer OTHER, SELFPAY ==
--- OUTSIDE RECORDS SUMMARY | 2025-05-07 08:30 | XMS_ITS | Clinical Summary ---
Author Organization [facility] Address [address] [place] [address] Phone Care Team Providers Care Client Solutions Director Name Role Phone Physician, No Pcp Primary Care Provider Unavaila ble Allergies Active Allergy Reactions Criticality Noted Date Comments Penicillins Rash 02/21/2025 Encounters Date Type Department Care Team Description 02/22/2025 3:49 AM EDT - 02/22/2025 9:23 AM EDT Emergency [facility] Emergency [address] [place] [address] Nonintractable headache, unspecified chronicity pattern, unspecified headache type (Primary Dx) Discharge Disposition: Home or Self Care from Last 3 Months Social History Tobacco Use Types Packs/Day Years Used Date Smoking Tobacco: Never Assessed Comments Unknown Sex and Gender Information Value Date Recorded Sex Assigned at Not on file Legal Sex Female 4:32 AM EST Gender Identity Not on file Sexual Orientation Not on file Last Filed Vital Signs Vital Sign Reading Time Taken Comments Blood Pressure 117/77 02/22/2025 6:02 AM EDT Pulse 66 02/22/2025 6:02 AM EDT Temperature 36.5 C (97.7 F) 02/22/2025 6:02 AM EDT Respiratory Rate 18 02/22/2025 6:02 AM EDT Oxygen Saturation 98% 02/22/2025 6:02 AM EDT Inhaled Oxygen Concentration - - Weight 56.7 kg (125 lb) 02/21/2025 11:54 PM EDT Height 165.1 cm (5' 5 ) 02/21/2025 11:54 PM EDT Body Mass Index 20.8 02/21/2025 11:54 PM EDT Plan of Treatment Health Maintenance Due Date Last Done Comments Breast Cancer Screening 1982 Hepatitis B Vaccines (1 of 3 - 19+ 3-dose series) 2001 Cervical Cancer Screening: P ap Smear 2003 COVID-19 Vaccine (3 - 2023-2 5 season) 2024 05/29/2021, 05/01/2021 Depression Screening 09/26/2024 HIV Screening 02/22/2025 Hepatitis C Screening 02/22/2025 Social Influencers of Health Screening 02/22/2025 Influenza Vaccine (#1) 2025 DTaP,Tdap,and Td Vaccines (3 - Td or Tdap) 03/01/2026 03/01/2016, 10/20/2012 Pneumococcal Vaccine: Pediatrics (0 to 5 Years) and At-Risk Patients (6 to 49 Years) Aged Out 03/08/2014 No longer eligible b ased on patient's age to complete this topic HIB Vaccines Aged Out No longer eligi ble based on patient's age to complete this topic HPV Vaccines Aged Out No longer eligi ble based on patient's age to complete this topic Hepatitis A Vaccines Aged Out No long er eligible based on patient's age to complete this topic IPV Vaccines Aged Out No longer eligi ble based on patient's age to complete this topic MMR Vaccines Aged Out No longer eligi ble based on patient's age to complete this topic Meningococcal ACWY Vaccine Aged Out N o longer eligible based on patient's age to complete this topic Meningococcal B Vaccine Aged Out No l onger eligible based on patient's age to complete this topic RSV Immunization Patients Under 20 months Aged Out No longer eligible b ased on patient's age to complete this topic Varicella Vaccines Aged Out No longer eligible based on patient's age to complete this topic Procedures Procedure Name Priority Date/Time Associated Diagnosis Comments POC , URINE DIAGNOSTIC STAT 02/22/2025 12:39 AM EDT from Last 3 Months Results * POC , urine manually resulted (02/22/2025 12:39 AM EDT) HCG, Ur POC Negative Negative POC hCG Int QC Pass? Yes Yes Urine Urine specimen obtained by clean catch procedure / Unknown 02/22/2025 12:39 AM EDT Nasreen Aly MD POINT OF CARE TEST ENTER /EDIT ORDERABLES Final Result from Last 3 Months Insurance [facility] [employer] Care Teams Client Solutions Director Relationship Specialty Start Date End Date Physician, No Pcp PCP - General 02/22/25
[2025-05-07 08:31] VITALS: BP 116/70; PULSE 68; TEMP 36.4; O2SAT 99; BMI 22.6
--- NOTE | 2025-05-07 08:31 | AM.OFFWIN_ITS ---
Intake Vital Signs 05/07/25 08:31 Height 5 ft 5 in Weight 136 lb BMI 22.6 BP 116/70 Blood Pressure Location Lt brachial Position Sitting Pulse 68 Pulse Source Pulse Oximeter Temp 97.5 F Temp Source Oral Pulse Oximetry (%) 99 Oxygen Delivery Method Room Air Intake Visit Reasons: EP Vertigo? Dizzy, nausea Intake Note: presents with dizziness and nauseous, feels like room spins with eyes closed, fatigue for about 2 weeks Patient Tobacco Use Status: Never used Tobacco Allergies nafcillin Allergy (Mild, Verified 05/07/25 08:34) rash ENVIRONMENTAL Allergy (Unknown, Uncoded 07/13/22 15:51) ITCHY/RUNNY NOSE/WATERY EYES Do you need a note to return to daycare/school/sports/work: No HPI HPI Comments History of Present Illness Details History of Present Illness - The patient is a 44-year-old female pr esenting with symptoms of vertigo, nausea, and fatigue. - The patient reports a two-week history of vertigo, describing a spinning sensation when closing her eyes and feeling unbalanced. - The patient has been nauseous. - The patient feels fatigued without any known medical conditions causing it. - This month, the patient experienced tw o weeks of spotting followed by a regular menstrual flow. - The patient reports blurry vision. - The patient has gained weight. - She denies palpitations, chest pain, S OB, abd pain, vomiting, diarrhea, melena, or hematochezia. - She denies bruising or hematuria. - Has not had labs done for her thyroid that she knows of. Physical Exam General: Cooperative, healthy appearing, comfortable, no acute distress and well developed Orientation: Patient oriented x3 Limitations: No limitations Head: Normal to inspection Ears: Hearing grossly normal bilaterally. No cerumen noted. TMs normal, no effusion noted. Nose: Normal external nose present Face and sinus: Normal facial exam Eyes: Appearance normal, both eyes and all related structures. No nystagmus noted. Neck: Normal visual inspection and Yes full ROM. No carotid bruits noted. Respiratory: Normal respiratory effort and able to speak in complete sentences. Clear to auscultation bilaterally. No w/r/r noted Cardiovascular: Regular rate and rhythm. Normal S1 and S2. No m/r/g noted. GI: Normal to inspection. Soft to palpation and nontender Skin: No rashes or lesions noted, but reports dry skin Neuro: Patient oriented x3. CN 2-12 intact. Extremities: Normal to inspection Patient was informed and verbally consented to the use of an ambient scribe for clinic note documentation during this visit. [facility] Medical History Preop cardiovascular exam Leukopenia Pre-op evaluation Vaginal odor Vaginal itching Cervical cancer screening Well woman exam with routine gynecological exam Nasal abscess Physical exam Asthma exacerbation Sacroiliac joint pain Weight loss Leukopenia Potential exposure to STD Vaginal itching Encounter for IUD removal Contraceptive management Endocarditis Hepatitis C Dyslipidemia History of heroin use Lumbar degenerative disc disease Surgical History H/O LEEP H/O cosmetic surgery Family History Mother No problems noted. Father Diabetes mellitus Essential hypertension Paternal Grandmother Esophageal cancer Social History Household Members: Children Housing: Apartment Are you a primary personal care service provider to a significant other at home: No Do you presently have visiting nurse or other home services: No Unable to assess alcohol history related to: Unable to respond Alcohol intake: never Patient Tobacco Use Status: Never used Tobacco Tobacco use type: Cigarette e-Cigarette/Vaping Use: Never Used Second Hand Smoke Exposure: No Substance Use Type: Marijuana service: No Current occupational status: employed Current occupational exposures/hazards: No Gender identity: Female Cognitive needs: No Hearing needs: No Vision needs: No Female Reproductive History Menstrual Age of Menarche: 12 Review of Systems Const All systems reviewed & are unremarkable except as noted in HPI and below Physical Exam Vital Signs: Last Vital Signs Temp 97.5 F 05/07/25 08:31 Pulse 68 05/07/25 08:31 BP 116/70 05/07/25 08:31 Pulse Ox 99 05/07/25 08:31 Oxygen Delivery Method Room Air 05/07/25 08:31 BMI result Body Mass Index 22.6 Assessment & Plan Assessment & Plan (1) Dizziness: Code(s): R42 - Dizziness and giddiness Plan Most likely vertigo vs anemia vs electrolyte imbalance vs thyroid issues Plan - Prescribe medications for vertigo and nausea to manage symptoms. - Order laboratory tests to evaluate thyroid function and check for anemia. - Recommend follow-up appointment with primary care provider for further evaluation and management. Orders: Orders Comprehensive Met. Panel Today R42 - Dizziness and giddiness Complete Blood Count Auto Diff Today R42 - Dizziness and giddiness TSH reflex Free T4 Today R42 - Dizziness and giddiness Medications: New meclizine 25 mg PO BID PRN 20 tabs 0RF dizziness 10 days ondansetron HCl 4 mg PO Q8H PRN 14 tabs 0RF nausea and vomiting 5 days Coding Level of Care Code Est Pt Level 4 (32363) Diagnoses Dizziness R42
== END 2025-05-07 09:20 | disposition home or self-care (01) ==
PROVIDERS: PCP Internal Medicine; Visit Provider Physician Assistant Medical
DX: R42 Dizziness and giddiness (principal)